=== PATIENT | female | born 1935 | race Caucasian/White ===

== ENCOUNTER 2016-10-20 11:41 | Outpatient (CLI) | payer OTHER, MEDICAID ==
[~2016-10-20 11:41] MED LIST: ACET-2165 PO; ALBU8.5H8 INH; AMLO2.5T2 PO; DICL100G16 TP; DIPH25CA83 PO; DOCU-144 PO; IPRA0.2S53 NEB; LEVO50TA8 PO; LISI5TAB PO; LOPE2CAP PO; LORA1TAB PO; TRIA80OI TP; VIS25 PO
== END 2016-10-20 18:57 | disposition home or self-care (01) ==
LOC: SMA 11:41
PROVIDERS: ATTEND Internal Medicine
DX: Z12.31 Encounter for screening mammogram for malignant neoplasm of breast (principal); I65.22 Occlusion and stenosis of left carotid artery; R05 Cough; R09.89 Other specified symptoms and signs involving the circulatory and respiratory systems; J98.4 Other disorders of lung; M47.894 Other spondylosis, thoracic region; Z86.73 Personal history of transient ischemic attack (TIA), and cerebral infarction without residual deficits
CPT/HCPCS: 71020; 93880; G0202

== ENCOUNTER 2018-01-30 21:51 | Emergency (ER) | payer OTHER, MEDICAID ==
[~2018-01-30] VITALS: Ht 170.2 cm; Wt 77.1 kg
[~2018-01-30 21:51] MED LIST changes: -ACET-2165 PO; -ALBU8.5H8 INH; -AMLO2.5T2 PO; +ASPI-1153 PO; +BUDE6HFA INH; -DICL100G16 TP; -DIPH25CA83 PO; -DOCU-144 PO; +FORM1POW5 MC; +GABA-529 PO; +HYDR12.55 PO; -IPRA0.2S53 NEB; +LISI10TA5 PO; -LISI5TAB PO; -LOPE2CAP PO; +LORA-258 PO; -LORA1TAB PO; +METO25TA3 PO; +NITR-85 PO; +PRED10TA PO; -TRIA80OI TP; -VIS25 PO
--- NOTE | 2018-01-30 21:55 | NUR ---
Placed in room 2. Placed on cardiac care unit nurse, blood pressure machine and pulse oximeter. To gown for exam. Side rails up.
--- NOTE | 2018-01-30 22:03 | NUR ---
Patient brought to ER by BLS ambulance from [facility]. Patient C/O dizziness and the feeling of "passing out" and "shakiness" Patient also states that she checked her blood pressure and it read HI. Denies N/V, denies headache, denies pain. Patient calm on gurney, unlabored breathing, no signs of acute distress.
[2018-01-30 22:04] VITALS: BP_SYST 203
--- NOTE | 2018-01-30 22:39 | NUR ---
Patient calm on gurney, denies pain. No signs of acute distress.
--- NOTE | 2018-01-30 23:31 | NUR ---
ER MD Deluna at bedside evaluating the patient.
--- NOTE | 2018-01-30 23:51 | NUR ---
# 24 gauge angiocath placed to left wrist. Use of asceptic technique. Opsite placed over site. Blood return noted. Flushed with 10 cc of normal saline. No evidence of infiltration noted. Patient tolerated well.
[2018-01-31] MEDS ORDERED: LISINOPRIL 10 MG TABLET (PRINIVIL) PO ONE
[2018-01-31] MEDS ORDERED: LORazepam 2 MG/ML VIAL (FOR ER USE) IVP ONE
--- NOTE | 2018-01-31 00:30 | NUR ---
Medicated per MD orders.
[2018-01-31] MEDS ORDERED: DILTIAZEM HCL 25 MG/5 ML VIAL IVP ONE ×2 (01:15)
--- NOTE | 2018-01-31 01:35 | NUR ---
Medicated per MD orders.
--- NOTE | 2018-01-31 01:52 | NUR ---
ER MD [place]k at bedside discussing plan of care and discharge with patient.
[2018-01-31 02:01] VITALS: BP_SYST 160
--- NOTE | 2018-01-31 02:01 | NUR ---
Patient given written and verbal discharge instructions and verbalizes understanding. ER MD Deluna discussed with patient the results and treatment provided. Patient in stable condition. ID arm band removed. IV catheter removed intact and dressing applied, no active bleeding. Patient educated on pain management and to follow up with PMD. Pain Scale 0/10. Opportunity for questions provided and answered.
== END 2018-01-31 02:01 | disposition home or self-care (01) ==
LOC: SED 21:51
DX: I10 Essential (primary) hypertension (principal); F41.9 Anxiety disorder, unspecified; I25.10 Atherosclerotic heart disease of native coronary artery without angina pectoris; J44.9 Chronic obstructive pulmonary disease, unspecified; Z86.73 Personal history of transient ischemic attack (TIA), and cerebral infarction without residual deficits; Z79.899 Other long term (current) drug therapy
CPT/HCPCS: 93005; 96374; 96375; 96376; 99284; J2060; J3490

== ENCOUNTER 2018-02-23 17:33 | Emergency (ER) | payer OTHER, MEDICAID ==
[~2018-02-23] VITALS: Ht 165.1 cm; Wt 65.8 kg
[2018-02-23 17:33] VITALS: BP_SYST 193
[2018-02-23] MEDS ORDERED: LORazepam 1 MG TABLET PO ONE (18:30)
[2018-02-23] MEDS ORDERED: ALBUTEROL SULFATE 0.083% 2.5 MG/3 ML VIAL.NEB IH ONE (18:30)
[2018-02-23 19:17] LABS: ANION GAP 8 (5-15); CALCIUM 9.4 mg/dL (8.4-11.0); CHLORIDE 105 mmol/L (98-107); CREATININE 1.08 mg/dL (0.55-1.30); GLUCOSE 95 mg/dL (70-99); POTASSIUM 4.2 mmol/L (3.5-5.1); SODIUM SERUM 138 mmol/L (136-145); UREA NITROGEN, BLOOD 31 mg/dL (8-21)
[2018-02-23 19:18] LABS: BASOPHILS # (AUTO) 0.1 K/uL (0.0-0.2); BASOPHILS % (AUTO) 1.3 % (0.0-2.0); EOSINOPHILS # (AUTO) 0.1 K/uL (0.0-0.4); EOSINOPHILS % (AUTO) 2.7 % (0.0-4.0); HEMATOCRIT 39.8 % (36-48); LYMPHOCYTES # (AUTO) 1.7 K/uL (1.0-5.5); LYMPHOCYTES % (AUTO) 31.6 % (20.5-51.5); MEAN CORPUSCULAR HEMOGLOBIN 29 pg (27-31); MEAN CORPUSCULAR HGB CONC 33 % (32-36); MEAN CORPUSCULAR VOLUME 89 fL (79.0-98.0); MONOCYTES # (AUTO) 0.6 K/uL (0.0-1.0); MONOCYTES % (AUTO) 10.5 % (1.7-9.3); NEUTROPHILS % (AUTO) 53.9 % (40.0-70.0); PLATELET COUNT (AUTO) 225 K/uL (130-430); RED BLOOD CELL COUNT(AUTO) 4.49 MIL/uL (4.2-6.2); RED CELL DISTRIBUTION WIDTH 12.9 % (9.0-15.0); WHITE BLOOD COUNT (AUTO) 5.5 K/uL (4.8-10.8)
[2018-02-23 19:22] LABS: ALANINE AMINOTRANSFERASE 18 U/L (12-78); ALBUMIN 3.7 g/dL (3.4-4.8); ASPARTATE AMINOTRANSFERASE 18 U/L (10-37); TOTAL BILIRUBIN 0.5 mg/dL (0.0-1.0)
[2018-02-23 19:26] LABS: PROTHROMBIN TIME 9.9 SECS (9.5-12.5)
[2018-02-23 20:50] VITALS: BP_SYST 193
== END 2018-02-23 20:50 | disposition home or self-care (01) ==
LOC: SED 17:33
DX: F41.9 Anxiety disorder, unspecified (principal); J44.9 Chronic obstructive pulmonary disease, unspecified; I10 Essential (primary) hypertension; I25.10 Atherosclerotic heart disease of native coronary artery without angina pectoris; Z86.73 Personal history of transient ischemic attack (TIA), and cerebral infarction without residual deficits; Z90.49 Acquired absence of other specified parts of digestive tract; Z90.710 Acquired absence of both cervix and uterus; Z79.899 Other long term (current) drug therapy
CPT/HCPCS: 36415; 71045; 80053; 83880; 84484; 85025; 85610; 85730; 93005; 94640; 99285; J7613

== ENCOUNTER 2018-05-08 14:41 | Inpatient (IN) | payer OTHER, MEDICAID ==
[~2018-05-08] VITALS: Ht 165.1 cm; Wt 57.6 kg
[2018-05-08] MEDS ORDERED: NACL 0.9% 1,000 ML IV ONE (14:46)
[2018-05-08 14:54] VITALS: BP_SYST 114
[2018-05-08] MEDS ORDERED: MORPHINE 2 MG/ML INJ. SYRINGE IVP ONE (15:00)
[2018-05-08] MEDS ORDERED: ONDANSETRON HCL 4 MG/2 ML VIAL IVP ONE (15:00)
[2018-05-08] MEDS ORDERED: CLOPIDOGREL BISULFATE 75 MG TABLET PO ONE (15:00)
[2018-05-08] MEDS ORDERED: ASPIRIN 81 MG TAB.CHEW PO ONE (15:00)
[2018-05-08 15:15] LABS: BASOPHILS # (AUTO) 0.1 K/uL (0.0-0.2); BASOPHILS % (AUTO) 0.6 % (0.0-2.0); EOSINOPHILS # (AUTO) 0.2 K/uL (0.0-0.4); EOSINOPHILS % (AUTO) 2.8 % (0.0-4.0); HEMATOCRIT 38.9 % (36-48); HEMOGLOBIN 12.9 g/dL (12.0-16.0); LYMPHOCYTES # (AUTO) 3.4 K/uL (1.0-5.5); LYMPHOCYTES % (AUTO) 39.1 % (20.5-51.5); MEAN CORPUSCULAR HEMOGLOBIN 29 pg (27-31); MEAN CORPUSCULAR HGB CONC 33 % (32-36); MEAN CORPUSCULAR VOLUME 88 fL (79.0-98.0); MONOCYTES # (AUTO) 0.6 K/uL (0.0-1.0); MONOCYTES % (AUTO) 7.2 % (1.7-9.3); NEUTROPHILS # (AUTO) 4.3 K/uL (1.8-7.7); NEUTROPHILS % (AUTO) 50.3 % (40.0-70.0); PLATELET COUNT (AUTO) 386 K/uL (130-430); RED BLOOD CELL COUNT(AUTO) 4.44 MIL/uL (4.2-6.2); RED CELL DISTRIBUTION WIDTH 13.1 % (9.0-15.0); WHITE BLOOD COUNT (AUTO) 8.6 K/uL (4.8-10.8)
[2018-05-08 15:26] LABS: ANION GAP 11 (5-15); CHLORIDE 101 mmol/L (98-107); CREATININE 1.75 mg/dL (0.55-1.30); GLUCOSE 132 mg/dL (70-99); SODIUM SERUM 138 mmol/L (136-145); UREA NITROGEN, BLOOD 55 mg/dL (8-21)
[2018-05-08 15:33] LABS: ALANINE AMINOTRANSFERASE 25 U/L (12-78); ALBUMIN 3.9 g/dL (3.4-4.8); AMYLASE 87 U/L (0-100); ASPARTATE AMINOTRANSFERASE 20 U/L (10-37); LIPASE 342 U/L (73-393); PROTHROMBIN TIME 9.9 SECS (9.5-12.5); TOTAL BILIRUBIN 0.6 mg/dL (0.0-1.0)
[2018-05-08 17:39] LABS: BILIRUBIN,URINE NEGATIVE (NEGATIVE); BLOOD, URINE NEGATIVE (NEGATIVE); CLARITY/URINE CLEAR (CLEAR); COLOR,URINE YELLOW (YELLOW); GLUCOSE,URINE NEGATIVE (NEGATIVE); KETONES,URINE NEGATIVE (NEGATIVE); LEUKOCYTE ESTERASE ,URINE 1+ (NEGATIVE); NITRITE, URINE NEGATIVE (NEGATIVE); PROTEIN URINE NEGATIVE (NEGATIVE); UROBILINOGEN,URINE 0.2 (0.2-1.0)
[2018-05-08 17:44] LABS: BACTERIA,URINE FEW /HPF (None Seen); RBC,URINE 0-3 /HPF (0-3)
[2018-05-08 18:13] VITALS: BP_SYST 155
[2018-05-08 19:45] VITALS: BP_SYST 148
[2018-05-08] MEDS ORDERED: ONDANSETRON HCL 4 MG/2 ML VIAL IVP PRN (23:15)
[2018-05-08] MEDS ORDERED: ALBUTEROL SULFATE 0.083% 2.5 MG/3 ML VIAL.NEB INH PRN (23:15)
[2018-05-08] MEDS ORDERED: HYDROcodone/ACETAMIN 5-325 MG TAB (NORCO/ VICODIN) PO PRN (23:15)
[2018-05-08] MEDS: cefTRIAXone 1 GM IVPB PREMIX 50 ML IV SCH (23:30)
[2018-05-08] MEDS ORDERED: POTASSIUM CHLORIDE 10 MEQ TAB.PRT.SR PO ONE (23:30)
[2018-05-09] VITALS (11 sets, daily range): BP systolic 119–165
[2018-05-09] MEDS ORDERED: cefTRIAXone 1 GM IVPB PREMIX 50 ML IV ONE (00:27)
[2018-05-09] MEDS ORDERED: LORazepam 1 MG TABLET PO PRN (04:30)
[2018-05-09] MEDS: LEVOTHYROXINE SODIUM 0.05 MG TABLET PO SCH (06:45)
[2018-05-09 07:10] LABS: BASOPHILS % (AUTO) 0.2 % (0.0-2.0); EOSINOPHILS # (AUTO) 0.3 K/uL (0.0-0.4); EOSINOPHILS % (AUTO) 3.8 % (0.0-4.0); HEMATOCRIT 36.7 % (36-48); LYMPHOCYTES # (AUTO) 2.4 K/uL (1.0-5.5); LYMPHOCYTES % (AUTO) 28.2 % (20.5-51.5); MEAN CORPUSCULAR HEMOGLOBIN 29 pg (27-31); MEAN CORPUSCULAR HGB CONC 33 % (32-36); MEAN CORPUSCULAR VOLUME 89 fL (79.0-98.0); MONOCYTES # (AUTO) 0.8 K/uL (0.0-1.0); NEUTROPHILS # (AUTO) 5.1 K/uL (1.8-7.7); NEUTROPHILS % (AUTO) 58.8 % (40.0-70.0); PLATELET COUNT (AUTO) 311 K/uL (130-430); RED BLOOD CELL COUNT(AUTO) 4.11 MIL/uL (4.2-6.2); RED CELL DISTRIBUTION WIDTH 13.2 % (9.0-15.0); WHITE BLOOD COUNT (AUTO) 8.6 K/uL (4.8-10.8)
[2018-05-09 07:22] LABS: ANION GAP 4 (5-15); CALCIUM 9.3 mg/dL (8.4-11.0); CHLORIDE 105 mmol/L (98-107); CREATININE 1.55 mg/dL (0.55-1.30); GLUCOSE 107 mg/dL (70-99); POTASSIUM 4.1 mmol/L (3.5-5.1); SODIUM SERUM 140 mmol/L (136-145); UREA NITROGEN, BLOOD 48 mg/dL (8-21)
[2018-05-09 07:34] LABS: ALANINE AMINOTRANSFERASE 23 U/L (12-78); ALBUMIN 3.4 g/dL (3.4-4.8); ASPARTATE AMINOTRANSFERASE 20 U/L (10-37); TOTAL BILIRUBIN 0.6 mg/dL (0.0-1.0)
[2018-05-09] MEDS ORDERED: BUDESONIDE/FORMOTEROL 160-4.5 mCg, 6 GM INHALER INH SCH (09:00)
[2018-05-09] MEDS: PREDNISONE 10 MG TABLET PO SCH (10:11)
[2018-05-09] MEDS: LISINOPRIL 10 MG TABLET (PRINIVIL) PO SCH (10:11)
[2018-05-09] MEDS: LORazepam 1 MG TABLET PO SCH ×2 (10:11→21:51)
[2018-05-09] MEDS: ASPIRIN 81 MG TABLET(ECOTRIN) PO SCH (10:12)
[2018-05-09] MEDS: ENOXAPARIN SODIUM 30 MG/0.3 ML SYRINGE SUBCUT SCH (10:13)
[2018-05-09] MEDS: FLUTICASONE/VILANTEROL 1 EACH BLST.W.DEV INH SCH (10:14)
[2018-05-09] MEDS: 0.45% NACL 1,000 ML IV SCH ×2 (10:46→22:36)
[2018-05-09] MEDS ORDERED: CLOPIDOGREL BISULFATE 75 MG TABLET PO ONE (12:15)
[2018-05-09] MEDS ORDERED: GABAPENTIN 100 MG CAPSULE PO SCH (21:00)
[2018-05-09] MEDS ORDERED: METOPROLOL SUCCINATE 25 MG TAB.SR.24H (TOPROL XL) PO SCH (21:00)
[2018-05-09] MEDS: cefTRIAXone 1 GM IVPB PREMIX 50 ML IV SCH (22:36)
[2018-05-10 00:02] VITALS: BP_SYST 130
[2018-05-10] MEDS: LEVOTHYROXINE SODIUM 0.05 MG TABLET PO SCH (06:31)
[2018-05-10 08:00] VITALS: BP_SYST 152
[2018-05-10] MEDS: ASPIRIN 81 MG TABLET(ECOTRIN) PO SCH (08:53)
[2018-05-10] MEDS: LISINOPRIL 10 MG TABLET (PRINIVIL) PO SCH (08:54)
[2018-05-10] MEDS: PREDNISONE 10 MG TABLET PO SCH (08:54)
[2018-05-10] MEDS: LORazepam 1 MG TABLET PO SCH (08:54)
[2018-05-10] MEDS: ENOXAPARIN SODIUM 30 MG/0.3 ML SYRINGE SUBCUT SCH (08:57)
[2018-05-10] MEDS: FLUTICASONE/VILANTEROL 1 EACH BLST.W.DEV INH SCH (08:58)
[2018-05-10] MEDS ORDERED: ATORVASTATIN 20 MG TABLET PO SCH (09:00)
[2018-05-10] MEDS ORDERED: CLOPIDOGREL BISULFATE 75 MG TABLET PO SCH (09:00)
[2018-05-10 11:28] VITALS: BP_SYST 152
[2018-05-10] MEDS ORDERED: plavix (11:36)
[2018-05-10] MEDS ORDERED: LIP40 PO (11:37)
== END 2018-05-10 12:01 | disposition home or self-care (01) | DRG 689 ==
LOC: SED 14:41 → STU 17:42
PROVIDERS: ADMIT Internal Medicine; ATTEND Internal Medicine
DX: N39.0 Urinary tract infection, site not specified (principal); N17.0 Acute kidney failure with tubular necrosis; I42.9 Cardiomyopathy, unspecified; R55 Syncope and collapse; N28.9 Disorder of kidney and ureter, unspecified; E87.6 Hypokalemia; I10 Essential (primary) hypertension; E78.5 Hyperlipidemia, unspecified; R79.89 Other specified abnormal findings of blood chemistry; E03.9 Hypothyroidism, unspecified; F41.9 Anxiety disorder, unspecified; R00.1 Bradycardia, unspecified; I25.119 Atherosclerotic heart disease of native coronary artery with unspecified angina pectoris; J44.9 Chronic obstructive pulmonary disease, unspecified; Z86.73 Personal history of transient ischemic attack (TIA), and cerebral infarction without residual deficits; Z90.710 Acquired absence of both cervix and uterus; Z95.5 Presence of coronary angioplasty implant and graft; Z82.49 Family history of ischemic heart disease and other diseases of the circulatory system; Z79.899 Other long term (current) drug therapy; Z79.82 Long term (current) use of aspirin; Z90.49 Acquired absence of other specified parts of digestive tract
CPT/HCPCS: 36415; 71045; 78579; 78580-TC; 80053; 81000-TC; 82150-TC; 82550-TC; 83690-TC; 83880; 84484; 85025; 85379; 85610-TC; 85730-TC; 87081; 87086; 93005; 93306; 93880; 93970; 96374; 99285; A9539; A9540; G0378; J0696; J1650; J2405; J7512

== ENCOUNTER 2018-08-05 12:21 | Outpatient (CLI) | payer OTHER, MEDICAID ==
[~2018-08-05 12:21] MED LIST changes: +LIP40 PO; +plavix
== END 2018-08-05 20:51 | disposition home or self-care (01) ==
LOC: SRD 12:21
PROVIDERS: ATTEND Internal Medicine
DX: M79.671 Pain in right foot (principal); M79.672 Pain in left foot

== ENCOUNTER 2019-01-05 13:11 | Outpatient (CLI) | payer OTHER, MEDICAID ==
[~2019-01-05 13:11] MED LIST changes: +ATOR10TA68 PO; +AZIT250T PO; -BUDE6HFA INH; -FORM1POW5 MC; +FURO-149 PO; -GABA-529 PO; -LEVO50TA8 PO; -LIP40 PO; -LISI10TA5 PO; +LISI40TA4 PO; -NITR-85 PO; -PRED10TA PO; +SYN50 PO; -plavix
== END 2019-01-05 21:08 | disposition home or self-care (01) ==
LOC: SRD 13:11
PROVIDERS: ATTEND Internal Medicine
DX: M47.814 Spondylosis without myelopathy or radiculopathy, thoracic region (principal); M47.816 Spondylosis without myelopathy or radiculopathy, lumbar region; M81.8 Other osteoporosis without current pathological fracture; M48.04 Spinal stenosis, thoracic region; M48.061 Spinal stenosis, lumbar region without neurogenic claudication; G95.19 Other vascular myelopathies; M95.8 Other specified acquired deformities of musculoskeletal system
CPT/HCPCS: 71120-TC; 72072-TC; 72110; 73000-TC

== ENCOUNTER 2019-08-17 15:00 | Emergency (ER) | payer OTHER, MEDICAID ==
[~2019-08-17] VITALS: Ht 162.6 cm; Wt 49.9 kg
[2019-08-17 15:11] VITALS: BP_SYST 161
[2019-08-17] MEDS ORDERED: IPRATROPIUM/ALBUTEROL SULFATE 3 ML AMPUL.NEB (DUONEB) INH ONE (15:15)
[2019-08-17] MEDS ORDERED: methylPREDNISolone SOD SUCC/PF 62.5 MG/ML VIAL IM ONE (15:15)
[2019-08-17 15:55] LABS: BASOPHILS % (AUTO) 0.6 % (0.0-2.0); EOSINOPHILS # (AUTO) 0.2 K/uL (0.0-0.4); HEMATOCRIT 37.1 % (36-48); HEMOGLOBIN 12.5 g/dL (12.0-16.0); LYMPHOCYTES # (AUTO) 2.3 K/uL (1.0-5.5); LYMPHOCYTES % (AUTO) 36.7 % (20.5-51.5); MEAN CORPUSCULAR HEMOGLOBIN 30 pg (27-31); MEAN CORPUSCULAR HGB CONC 34 % (32-36); MEAN CORPUSCULAR VOLUME 89 fL (79.0-98.0); MONOCYTES # (AUTO) 0.6 K/uL (0.0-1.0); MONOCYTES % (AUTO) 9.1 % (1.7-9.3); NEUTROPHILS # (AUTO) 3.1 K/uL (1.8-7.7); NEUTROPHILS % (AUTO) 50.6 % (40.0-70.0); PLATELET COUNT (AUTO) 187 K/uL (130-430); RED BLOOD CELL COUNT(AUTO) 4.19 MIL/uL (4.2-6.2); RED CELL DISTRIBUTION WIDTH 13.3 % (9.0-15.0); WHITE BLOOD COUNT (AUTO) 6.2 K/uL (4.8-10.8)
[2019-08-17] MEDS ORDERED: LEVOFLOXACIN 500 MG TABLET PO ONE (16:30)
[2019-08-17 16:32] LABS: ANION GAP 13 (5-15); CALCIUM 9.2 mg/dL (8.4-11.0); CHLORIDE 105 mmol/L (98-107); CREATININE 1.14 mg/dL (0.55-1.30); GLUCOSE 139 mg/dL (70-99); SODIUM SERUM 143 mmol/L (136-145); UREA NITROGEN, BLOOD 26 mg/dL (8-21)
[2019-08-17 16:36] LABS: POTASSIUM 2.9 mmol/L (3.5-5.1)
[2019-08-17 16:39] LABS: TOTAL BILIRUBIN 0.5 mg/dL (0.0-1.0)
[2019-08-17 16:40] LABS: ALANINE AMINOTRANSFERASE 25 U/L (12-78); ALBUMIN 3.7 g/dL (3.4-4.8); ASPARTATE AMINOTRANSFERASE 25 U/L (10-37)
[2019-08-17] MEDS ORDERED: NACL 0.9% 1,000 ML IV ONE (16:45)
[2019-08-17] MEDS ORDERED: POTASSIUM CHLORIDE 20 MEQ TAB.PRT.SR PO ONE (16:45)
[2019-08-17] MEDS ORDERED: NS 500 ML IV ONE (16:45)
[2019-08-17 19:27] VITALS: BP_SYST 166
== END 2019-08-17 19:27 | disposition home or self-care (01) ==
LOC: SED 15:00
DX: J44.1 Chronic obstructive pulmonary disease with (acute) exacerbation (principal); E87.6 Hypokalemia; I25.10 Atherosclerotic heart disease of native coronary artery without angina pectoris; I10 Essential (primary) hypertension; Z79.82 Long term (current) use of aspirin; Z88.8 Allergy status to other drugs, medicaments and biological substances
CPT/HCPCS: 36415; 71045; 80053; 81002; 83605; 83880; 84484; 85025; 86710; 87040; 87086; 93005; 94640; 96372; 99285; J2930; J7030

== ENCOUNTER 2020-03-31 16:47 | Emergency (ER) | payer OTHER, MEDICAID ==
[~2020-03-31] VITALS: Ht 170.2 cm; Wt 63.5 kg
[2020-03-31 16:47] VITALS: BP_SYST 141
[~2020-03-31 16:47] MED LIST changes: -ASPI-1153 PO; +ASPI-1393 PO
--- NOTE | 2020-03-31 16:47 | NUR ---
Placed inbed 6, Triaged at bedside. Dr. Mariscal at bedside
--- NOTE | 2020-03-31 16:54 | NUR ---
ER at bedside examining patient.
[2020-03-31] MEDS ORDERED: NACL 0.9% 1,000 ML IV ONE (17:00)
--- NOTE | 2020-03-31 17:06 | NUR ---
senior director of [employer] at bedside collecting blood specimen as ordered by Dr. Mariscal. Patient tolerated the procedure well.
--- NOTE | 2020-03-31 17:12 | NUR ---
X-ray done at bedside as ordered by Dr. JIMENEZ. Patient tolerated the procedure well.
--- NOTE | 2020-03-31 17:20 | NUR ---
ECG done at bedside as ordered by Dr. Mariscal. Patient tolerated the procedure well. ER Physician given copy of EKG for review.
[2020-03-31 17:24] LABS: BASOPHILS # (AUTO) 0.1 K/uL (0.0-0.2); BASOPHILS % (AUTO) 1.1 % (0.0-2.0); EOSINOPHILS # (AUTO) 0.1 K/uL (0.0-0.4); EOSINOPHILS % (AUTO) 2.9 % (0.0-4.0); HEMATOCRIT 37.8 % (36-48); HEMOGLOBIN 12.5 g/dL (12.0-16.0); LYMPHOCYTES # (AUTO) 1.8 K/uL (1.0-5.5); LYMPHOCYTES % (AUTO) 35.5 % (20.5-51.5); MEAN CORPUSCULAR HEMOGLOBIN 29 pg (27-31); MEAN CORPUSCULAR HGB CONC 33 % (32-36); MEAN CORPUSCULAR VOLUME 88 fL (79.0-98.0); MONOCYTES # (AUTO) 0.5 K/uL (0.0-1.0); MONOCYTES % (AUTO) 9.9 % (1.7-9.3); NEUTROPHILS # (AUTO) 2.6 K/uL (1.8-7.7); NEUTROPHILS % (AUTO) 50.6 % (40.0-70.0); PLATELET COUNT (AUTO) 189 K/uL (130-430); RED BLOOD CELL COUNT(AUTO) 4.28 MIL/uL (4.2-6.2); RED CELL DISTRIBUTION WIDTH 14.1 % (9.0-15.0); WHITE BLOOD COUNT (AUTO) 5.1 K/uL (4.8-10.8)
--- NOTE | 2020-03-31 17:27 | NUR ---
Patient used the BSC with a steady gait. Urine specimen collected as ordered by Dr. Mariscal.
--- NOTE | 2020-03-31 17:32 | NUR ---
Patient is taken to CT via gurney, in stable condition.
[2020-03-31 17:36] LABS: ANION GAP 7 (5-15); CHLORIDE 104 mmol/L (98-107); CREATININE 0.97 mg/dL (0.55-1.30); GLUCOSE 113 mg/dL (70-99); POTASSIUM 3.5 mmol/L (3.5-5.1); SODIUM SERUM 140 mmol/L (136-145); UREA NITROGEN, BLOOD 27 mg/dL (8-21)
[2020-03-31 17:42] LABS: ALANINE AMINOTRANSFERASE 19 U/L (12-78); ALBUMIN 3.8 g/dL (3.4-4.8); ASPARTATE AMINOTRANSFERASE 28 U/L (10-37); TOTAL BILIRUBIN 0.4 mg/dL (0.0-1.0)
[2020-03-31 17:43] LABS: ALCOHOL, BLOOD < 3 mg/dL (<10)
--- NOTE | 2020-03-31 17:43 | NUR ---
Patient is back from CT in stable condition.
[2020-03-31] MEDS ORDERED: MECLIZINE HCL 25 MG TABLET (ANITVERT) PO ONE (17:45)
[2020-03-31 17:48] LABS: BILIRUBIN,URINE NEGATIVE (NEGATIVE); BLOOD, URINE NEGATIVE (NEGATIVE); CLARITY/URINE CLEAR (CLEAR); GLUCOSE,URINE NEGATIVE (NEGATIVE); KETONES,URINE NEGATIVE (NEGATIVE); LEUKOCYTE ESTERASE ,URINE NEGATIVE (NEGATIVE); NITRITE, URINE NEGATIVE (NEGATIVE); PH,URINE 7.5 (5.0-8.0); PROTEIN URINE NEGATIVE (NEGATIVE); UROBILINOGEN,URINE 0.2 (0.2-1.0)
[2020-03-31 17:50] LABS: COLOR,URINE STRAW (YELLOW)
--- NOTE | 2020-03-31 18:00 | NUR ---
# 22 gauge angiocath placed to RFA. Use of asceptic technique. Opsite placed over site. Blood return noted. Flushed with 10 cc of normal saline. No evidence of infiltration noted. Patient tolerated well.
[2020-03-31 18:01] LABS: BARBITURATE, URINE NEGATIVE (NEG <=200); BENZODIAZEPINE, URINE NEGATIVE (NEG <=150); CANNABINOID, URINE NEGATIVE (NEG <=50); COCAINE, URINE NEGATIVE (NEG <=150); METHAMPHETAMINES SCREEN,URINE NEGATIVE (NEG <=500); OPIATE, URINE NEGATIVE (NEG <=100); PHENCYCLIDINE SCREEN,URINE NEGATIVE (NEG <=25); UR TRICYCLIC ANTIDEPRESSANTS NEGATIVE (NEG <=300); URINE AMPHETAMINE NEGATIVE (NEG <=500); URINE METHADONE NEGATIVE (NEG <=200); URINE OXYCODONE SCREEN NEGATIVE (NEG <=100); URINE PROPOXYPHENE SCREEN NEGATIVE (NEG <=300)
--- NOTE | 2020-03-31 18:48 | NUR ---
Patient wants the IV stopped and off. notified. Okay to discontinue per Dr. Mariscal.
[2020-03-31 18:55] VITALS: BP_SYST 141
--- NOTE | 2020-03-31 18:56 | NUR ---
Patient given written and verbal discharge instructions and verbalizes understanding. ER MD discussed with patient the results and treatment provided. Patient in stable condition. ID arm band removed. No Rx given. Patient educated on pain management and to follow up with PMD. Pain Scale 0/10. Opportunity for questions provided and answered. Medication side effect fact sheet provided.
== END 2020-03-31 18:56 | disposition home or self-care (01) ==
LOC: SED 16:47
DX: R42 Dizziness and giddiness (principal); E86.0 Dehydration; J44.9 Chronic obstructive pulmonary disease, unspecified; I10 Essential (primary) hypertension; Z79.82 Long term (current) use of aspirin; Z79.899 Other long term (current) drug therapy
CPT/HCPCS: 36415; 70450; 71045; 80053; 80307; 81003; 84484; 85025; 85610; 85730; 93005; 96360; 99285; G0481; G0482; J7030; J8597

== ENCOUNTER 2020-06-01 22:02 | Emergency (ER) | payer OTHER, MEDICAID ==
[~2020-06-01] VITALS: Ht 170.2 cm; Wt 63.5 kg
[2020-06-01 22:07] VITALS: BP_SYST 239
--- NOTE | 2020-06-01 22:10 | NUR ---
Patient to [facility] for evaluation.
--- NOTE | 2020-06-01 22:12 | NUR ---
PT BIB [facility] FOR COMPLAINT OF HYPERTENSION SYSTOLIC GREATER THAN 200. PATIENT IS AOX4 COMPLAINS MILD HEADACHE. DENIES ANY NAUSEA, VOMITING, OR CHANGE OF VISION. PATIENT HX OF HTN AND REPORTS TAKING AMLODIPINE TODAY. PAIN 2/10. NO OTHER COMPLAINTS.
--- NOTE | 2020-06-01 22:59 | NUR ---
ER Dr. VALLES at bedside examining patient.
--- NOTE | 2020-06-01 23:00 | NUR ---
PHLEB AT BEDSIDE FOR DRAW
[2020-06-01 23:38] LABS: MEAN CORPUSCULAR HEMOGLOBIN 30 pg (27-31); RED BLOOD CELL COUNT(AUTO) 4.28 MIL/uL (4.2-6.2)
[2020-06-01] MEDS ORDERED: cloNIDine HCL 0.1 MG TABLET ONE (23:42)
[2020-06-01 23:43] LABS: BASOPHILS % (AUTO) 0.4 % (0.0-2.0); EOSINOPHILS # (AUTO) 0.2 K/uL (0.0-0.4); EOSINOPHILS % (AUTO) 3.1 % (0.0-4.0); HEMATOCRIT 36.9 % (36-48); HEMOGLOBIN 12.7 g/dL (12.0-16.0); LYMPHOCYTES # (AUTO) 2.2 K/uL (1.0-5.5); MEAN CORPUSCULAR HGB CONC 34 % (32-36); MEAN CORPUSCULAR VOLUME 86 fL (79.0-98.0); MONOCYTES # (AUTO) 0.5 K/uL (0.0-1.0); MONOCYTES % (AUTO) 9.2 % (1.7-9.3); NEUTROPHILS # (AUTO) 2.7 K/uL (1.8-7.7); NEUTROPHILS % (AUTO) 48.3 % (40.0-70.0); PLATELET COUNT (AUTO) 168 K/uL (130-430); RED CELL DISTRIBUTION WIDTH 13.6 % (9.0-15.0); WHITE BLOOD COUNT (AUTO) 5.7 K/uL (4.8-10.8)
[2020-06-01] MEDS ORDERED: cloNIDine HCL 0.1 MG TABLET PO ONE (23:45)
--- NOTE | 2020-06-01 23:47 | NUR ---
Urine specimen collected and SENT TO LAB
[2020-06-01 23:50] LABS: ANION GAP 11 (5-15); CALCIUM 8.7 mg/dL (8.4-11.0); CHLORIDE 107 mmol/L (98-107); CREATININE 0.89 mg/dL (0.55-1.30); GLUCOSE 89 mg/dL (70-99); POTASSIUM 3.1 mmol/L (3.5-5.1); SODIUM SERUM 144 mmol/L (136-145); UREA NITROGEN, BLOOD 21 mg/dL (8-21)
--- NOTE | 2020-06-01 23:53 | NUR ---
BP 193/98 PRIOR TO ADMINISTERING CLONIDINE 0.1 MG PO. PATIENT TOLERATED WELL. WILL CONTINUE TO MONITOR.
[2020-06-01 23:57] LABS: ALANINE AMINOTRANSFERASE 23 U/L (12-78); ASPARTATE AMINOTRANSFERASE 24 U/L (10-37); TOTAL BILIRUBIN 0.6 mg/dL (0.0-1.0)
[2020-06-02 00:33] LABS: BILIRUBIN,URINE NEGATIVE (NEGATIVE); BLOOD, URINE NEGATIVE (NEGATIVE); CLARITY/URINE CLEAR (CLEAR); COLOR,URINE YELLOW (YELLOW); GLUCOSE,URINE NEGATIVE (NEGATIVE); KETONES,URINE NEGATIVE (NEGATIVE); LEUKOCYTE ESTERASE ,URINE 1+ (NEGATIVE); NITRITE, URINE NEGATIVE (NEGATIVE); PH,URINE 6.5 (5.0-8.0); PROTEIN URINE NEGATIVE (NEGATIVE); UROBILINOGEN,URINE 0.2 (0.2-1.0)
[2020-06-02 00:38] LABS: RBC,URINE 0-3 /HPF (0-3)
[2020-06-02 00:39] LABS: BACTERIA,URINE FEW /HPF (None Seen)
[2020-06-02] MEDS ORDERED: POTASSIUM CHLORIDE 20 MEQ TAB.PRT.SR ONE (00:45)
[2020-06-02] MEDS ORDERED: POTASSIUM CHLORIDE 20 MEQ TAB.PRT.SR PO ONE (00:45)
[2020-06-02 01:42] VITALS: BP_SYST 140
--- NOTE | 2020-06-02 01:42 | NUR ---
Patient given written and verbal discharge instructions and verbalizes understanding. ER MD discussed with patient the results and treatment provided. Patient in stable condition. ID arm band removed. IV catheter removed intact and dressing applied, no active bleeding. Rx of MACROBID given. Patient educated on pain management and to follow up with PMD. Pain Scale 0/10 Opportunity for questions provided and answered. Medication side effect fact sheet provided.
== END 2020-06-02 01:42 | disposition home or self-care (01) ==
LOC: SED 22:02
DX: I10 Essential (primary) hypertension (principal); N39.0 Urinary tract infection, site not specified; J44.9 Chronic obstructive pulmonary disease, unspecified
CPT/HCPCS: 36415; 80053; 81000-TC; 85025; 87086; 93005; 99284

== ENCOUNTER 2021-02-16 12:25 | Emergency (ER) | payer OTHER, MEDICAID, SELFPAY ==
[~2021-02-16] VITALS: Ht 165.1 cm; Wt 58.1 kg
[~2021-02-16 12:25] MED LIST changes: -AZIT250T PO; +LISI40TA13 PO; -LISI40TA4 PO; +ZIT250 PO
[2021-02-16 12:29] VITALS: BP_SYST 134
[2021-02-16 13:26] LABS: BASOPHILS % (AUTO) 0.7 % (0.0-2.0); EOSINOPHILS # (AUTO) 0.1 K/uL (0.0-0.4); EOSINOPHILS % (AUTO) 2.3 % (0.0-4.0); HEMATOCRIT 35.3 % (36-48); LYMPHOCYTES # (AUTO) 1.7 K/uL (1.0-5.5); LYMPHOCYTES % (AUTO) 32.6 % (20.5-51.5); MEAN CORPUSCULAR HEMOGLOBIN 30 pg (27-31); MEAN CORPUSCULAR HGB CONC 34 % (32-36); MEAN CORPUSCULAR VOLUME 89 fL (79.0-98.0); MONOCYTES # (AUTO) 0.5 K/uL (0.0-1.0); MONOCYTES % (AUTO) 9.6 % (1.7-9.3); NEUTROPHILS # (AUTO) 2.8 K/uL (1.8-7.7); NEUTROPHILS % (AUTO) 54.8 % (40.0-70.0); PLATELET COUNT (AUTO) 193 K/uL (130-430); RED BLOOD CELL COUNT(AUTO) 3.96 MIL/uL (4.2-6.2); RED CELL DISTRIBUTION WIDTH 13.8 % (9.0-15.0); WHITE BLOOD COUNT (AUTO) 5.1 K/uL (4.8-10.8)
[2021-02-16 13:39] LABS: ANION GAP 10 (5-15); CALCIUM 9.1 mg/dL (8.4-11.0); CHLORIDE 105 mmol/L (98-107); GLUCOSE 137 mg/dL (70-99); POTASSIUM 3.2 mmol/L (3.5-5.1); SODIUM SERUM 142 mmol/L (136-145); UREA NITROGEN, BLOOD 32 mg/dL (8-21)
[2021-02-16 13:45] LABS: INR 0.9 (0.8-1.2); PROTHROMBIN TIME 10.1 SECS (9.5-12.5)
[2021-02-16 13:52] LABS: ALANINE AMINOTRANSFERASE 22 U/L (12-78); ALBUMIN 3.6 g/dL (3.4-4.8); ASPARTATE AMINOTRANSFERASE 23 U/L (10-37); TOTAL BILIRUBIN 0.6 mg/dL (0.0-1.0)
[2021-02-16] MEDS ORDERED: POTASSIUM CHLORIDE 20 MEQ TAB.PRT.SR PO ONE (14:45)
[2021-02-16 16:11] VITALS: BP_SYST 134
== END 2021-02-16 16:10 | disposition home or self-care (01) ==
LOC: SED 12:25
DX: J44.9 Chronic obstructive pulmonary disease, unspecified (principal); I10 Essential (primary) hypertension; Z79.899 Other long term (current) drug therapy; Z79.82 Long term (current) use of aspirin
CPT/HCPCS: 36415; 71045; 80053; 83880; 84484; 85025; 85610-TC; 85730-TC; 93005; 99285

== ENCOUNTER 2021-06-25 06:00 | Day surgery (SDC) | payer OTHER, MEDICAID, SELFPAY ==
[~2021-06-25] VITALS: Ht 165.1 cm; Wt 57.6 kg
[2021-06-25 07:50] LABS: BASOPHILS # (AUTO) 0.1 K/uL (0.0-0.2); BASOPHILS % (AUTO) 1.1 % (0.0-2.0); EOSINOPHILS # (AUTO) 0.2 K/uL (0.0-0.4); EOSINOPHILS % (AUTO) 2.7 % (0.0-4.0); HEMATOCRIT 35.8 % (36-48); HEMOGLOBIN 12.1 g/dL (12.0-16.0); LYMPHOCYTES # (AUTO) 1.7 K/uL (1.0-5.5); LYMPHOCYTES % (AUTO) 26.9 % (20.5-51.5); MEAN CORPUSCULAR HEMOGLOBIN 29 pg (27-31); MEAN CORPUSCULAR HGB CONC 34 % (32-36); MEAN CORPUSCULAR VOLUME 87 fL (79.0-98.0); MONOCYTES # (AUTO) 0.6 K/uL (0.0-1.0); MONOCYTES % (AUTO) 9.2 % (1.7-9.3); NEUTROPHILS # (AUTO) 3.7 K/uL (1.8-7.7); NEUTROPHILS % (AUTO) 60.1 % (40.0-70.0); PLATELET COUNT (AUTO) 210 K/uL (130-430); RED BLOOD CELL COUNT(AUTO) 4.13 MIL/uL (4.2-6.2); RED CELL DISTRIBUTION WIDTH 14.4 % (9.0-15.0); WHITE BLOOD COUNT (AUTO) 6.2 K/uL (4.8-10.8)
[2021-06-25 08:23] LABS: ANION GAP 14 (5-15); CALCIUM 9.1 mg/dL (8.4-11.0); CHLORIDE 109 mmol/L (98-107); CREATININE 1.17 mg/dL (0.55-1.30); GLUCOSE 103 mg/dL (70-99); POTASSIUM 3.5 mmol/L (3.5-5.1); SODIUM SERUM 144 mmol/L (136-145); UREA NITROGEN, BLOOD 18 mg/dL (8-21)
[2021-06-25] MEDS ORDERED: hydrALAZINE HCL 20 MG/ML VIAL IVP PRN (10:15)
[2021-06-25] MEDS ORDERED: HYDROmorphone 1 MG/ML INJ. CARTRIDGE IVP PRN ×2 (10:15)
[2021-06-25] MEDS ORDERED: LR 1,000 ML IV SCH (10:15)
[2021-06-25] MEDS ORDERED: METOCLOPRAMIDE HCL 10 MG/2 ML VIAL IVP PRN (10:15)
[2021-06-25] MEDS ORDERED: MEPERIDINE HCL/PF 25 MG/ML DISP.SYRIN IVP PRN (10:15)
[2021-06-25 15:10] VITALS: BP_SYST 143
== END 2021-06-25 14:50 | disposition home or self-care (01) ==
LOC: SMU 06:00 → SDS 06:00
PROVIDERS: ATTEND Surgery
DX: C44.622 Squamous cell carcinoma of skin of right upper limb, including shoulder (principal); R22.31 Localized swelling, mass and lump, right upper limb; I25.10 Atherosclerotic heart disease of native coronary artery without angina pectoris; I10 Essential (primary) hypertension; J44.9 Chronic obstructive pulmonary disease, unspecified; Z95.5 Presence of coronary angioplasty implant and graft; Z20.822 Contact with and (suspected) exposure to COVID-19
CPT/HCPCS: 14020; 36415; 71046; 80048; 85025; 87426; 88304; U0003

== ENCOUNTER 2021-07-03 10:19 | Emergency (ER) | payer OTHER, MEDICAID, SELFPAY ==
[~2021-07-03] VITALS: Ht 167.6 cm; Wt 57.6 kg
[2021-07-03 10:30] VITALS: BP_SYST 140
[2021-07-03] MEDS ORDERED: IBUP-2018 PO (11:15)
[2021-07-03 12:06] VITALS: BP_SYST 146
== END 2021-07-03 12:06 | disposition home or self-care (01) ==
LOC: SED 10:19
DX: S93.402A Sprain of unspecified ligament of left ankle, initial encounter (principal); J44.9 Chronic obstructive pulmonary disease, unspecified; I10 Essential (primary) hypertension; W01.0XXA Fall on same level from slipping, tripping and stumbling without subsequent striking against object, initial encounter; Y93.9 Activity, unspecified; Y92.9 Unspecified place or not applicable; Y99.9 Unspecified external cause status
CPT/HCPCS: 99283

== ENCOUNTER 2021-07-16 15:51 | Emergency (ER) | payer OTHER, MEDICAID, SELFPAY ==
[~2021-07-16] VITALS: Ht 165.1 cm; Wt 57.6 kg
[2021-07-16 15:51] VITALS: BP_SYST 131
[~2021-07-16 15:51] MED LIST changes: +IBUP-2018 PO
[2021-07-16] MEDS ORDERED: NACL 0.9% 1,000 ML IV ONE (16:15)
[2021-07-16 17:06] LABS: BASOPHILS # (AUTO) 0.1 K/uL (0.0-0.2); EOSINOPHILS # (AUTO) 0.2 K/uL (0.0-0.4); EOSINOPHILS % (AUTO) 3.1 % (0.0-4.0); HEMATOCRIT 36.1 % (36-48); HEMOGLOBIN 12.3 g/dL (12.0-16.0); LYMPHOCYTES # (AUTO) 1.4 K/uL (1.0-5.5); LYMPHOCYTES % (AUTO) 24.4 % (20.5-51.5); MEAN CORPUSCULAR HEMOGLOBIN 30 pg (27-31); MEAN CORPUSCULAR HGB CONC 34 % (32-36); MEAN CORPUSCULAR VOLUME 87 fL (79.0-98.0); MONOCYTES # (AUTO) 0.5 K/uL (0.0-1.0); NEUTROPHILS # (AUTO) 3.4 K/uL (1.8-7.7); NEUTROPHILS % (AUTO) 61.5 % (40.0-70.0); PLATELET COUNT (AUTO) 181 K/uL (130-430); RED BLOOD CELL COUNT(AUTO) 4.14 MIL/uL (4.2-6.2); RED CELL DISTRIBUTION WIDTH 13.9 % (9.0-15.0); WHITE BLOOD COUNT (AUTO) 5.6 K/uL (4.8-10.8)
[2021-07-16 17:14] LABS: ANION GAP 5 (5-15); CALCIUM 8.6 mg/dL (8.4-11.0); CHLORIDE 103 mmol/L (98-107); CREATININE 1.31 mg/dL (0.55-1.30); GLUCOSE 104 mg/dL (70-99); POTASSIUM 3.8 mmol/L (3.5-5.1); SODIUM SERUM 137 mmol/L (136-145); UREA NITROGEN, BLOOD 26 mg/dL (8-21)
[2021-07-16 17:23] LABS: ALANINE AMINOTRANSFERASE 18 U/L (12-78); ALBUMIN 3.5 g/dL (3.4-4.8); ASPARTATE AMINOTRANSFERASE 23 U/L (10-37); TOTAL BILIRUBIN 0.3 mg/dL (0.0-1.0)
[2021-07-16 17:35] LABS: BILIRUBIN,URINE NEGATIVE (NEGATIVE); BLOOD, URINE NEGATIVE (NEGATIVE); CLARITY/URINE CLEAR (CLEAR); GLUCOSE,URINE NEGATIVE (NEGATIVE); KETONES,URINE NEGATIVE (NEGATIVE); LEUKOCYTE ESTERASE ,URINE NEGATIVE (NEGATIVE); NITRITE, URINE NEGATIVE (NEGATIVE); PH,URINE 5.5 (5.0-8.0); PROTEIN URINE NEGATIVE (NEGATIVE); UROBILINOGEN,URINE 0.2 (0.2-1.0)
[2021-07-16 17:38] LABS: COLOR,URINE STRAW (YELLOW)
[2021-07-16 19:07] VITALS: BP_SYST 146
== END 2021-07-16 19:24 | disposition home or self-care (01) ==
LOC: SED 15:51
DX: R33.9 Retention of urine, unspecified (principal); I10 Essential (primary) hypertension; J44.9 Chronic obstructive pulmonary disease, unspecified; Z79.899 Other long term (current) drug therapy
CPT/HCPCS: 36415; 51701; 80053; 81003; 84484; 85025; 96360; 96361; 99283; J7030

== ENCOUNTER 2021-12-11 13:47 | Inpatient (IN) | payer OTHER, MEDICAID ==
[~2021-12-11] VITALS: Ht 165.1 cm; Wt 54.0 kg
[2021-12-11 14:04] VITALS: BP_SYST 130
[2021-12-11] MEDS ORDERED: ALBUTEROL SULFATE 0.083% 2.5 MG/3 ML VIAL.NEB INH ONE ×2 (15:00→16:15)
[2021-12-11] MEDS ORDERED: IPRATROPIUM BROM 0.5 MG/2.5 ML VIAL.NEB (ATROVENT) INH ONE ×2 (15:00→16:15)
[2021-12-11] MEDS ORDERED: methylPREDNISolone SOD SUCC/PF 62.5 MG/ML VIAL IVP ONE (15:00)
[2021-12-11 16:04] LABS: BASOPHILS # (AUTO) 0.1 K/uL (0.0-0.2); EOSINOPHILS # (AUTO) 0.5 K/uL (0.0-0.4); EOSINOPHILS % (AUTO) 7.4 % (0.0-4.0); HEMATOCRIT 35.9 % (36-48); HEMOGLOBIN 12.3 g/dL (12.0-16.0); LYMPHOCYTES # (AUTO) 1.7 K/uL (1.0-5.5); LYMPHOCYTES % (AUTO) 24.3 % (20.5-51.5); MEAN CORPUSCULAR HEMOGLOBIN 29 pg (27-31); MEAN CORPUSCULAR HGB CONC 34 % (32-36); MEAN CORPUSCULAR VOLUME 83 fL (79.0-98.0); MONOCYTES # (AUTO) 0.6 K/uL (0.0-1.0); MONOCYTES % (AUTO) 8.3 % (1.7-9.3); NEUTROPHILS # (AUTO) 4.2 K/uL (1.8-7.7); PLATELET COUNT (AUTO) 272 K/uL (130-430); RED BLOOD CELL COUNT(AUTO) 4.31 MIL/uL (4.2-6.2); WHITE BLOOD COUNT (AUTO) 7.1 K/uL (4.8-10.8)
[2021-12-11 16:25] LABS: CALCIUM 9.3 mg/dL (8.4-11.0); CHLORIDE 103 mmol/L (98-107); CREATININE 1.14 mg/dL (0.55-1.30); GLUCOSE 101 mg/dL (70-99); SODIUM SERUM 139 mmol/L (136-145); UREA NITROGEN, BLOOD 18 mg/dL (8-21)
[2021-12-11 16:35] LABS: ALANINE AMINOTRANSFERASE 10 U/L (12-78); ALBUMIN 3.3 g/dL (3.4-4.8); ASPARTATE AMINOTRANSFERASE 22 U/L (10-37); TOTAL BILIRUBIN 0.6 mg/dL (0.0-1.0)
[2021-12-11 17:00] LABS: ANION GAP 10 (5-15)
[2021-12-11] MEDS ORDERED: POTASSIUM CHLORIDE 20 MEQ TAB.PRT.SR PO ONE (17:30)
[2021-12-11] MEDS ORDERED: MAGNESIUM OXIDE 400 MG TABLET PO ONE (17:30)
[2021-12-11] MEDS ORDERED: FLUT1BLS19 INH (18:11)
[2021-12-11] MEDS ORDERED: NOR10 PO (18:11)
[2021-12-11 20:09] LABS: BILIRUBIN,URINE NEGATIVE (NEGATIVE); BLOOD, URINE NEGATIVE (NEGATIVE); CLARITY/URINE CLEAR (CLEAR); COLOR,URINE YELLOW (YELLOW); GLUCOSE,URINE NEGATIVE (NEGATIVE); KETONES,URINE NEGATIVE (NEGATIVE); LEUKOCYTE ESTERASE ,URINE 1+ (NEGATIVE); NITRITE, URINE NEGATIVE (NEGATIVE); PH,URINE 5.5 (5.0-8.0); PROTEIN URINE NEGATIVE (NEGATIVE); UROBILINOGEN,URINE 0.2 (0.2-1.0)
[2021-12-11 20:34] LABS: BACTERIA,URINE FEW /HPF (None Seen); HYALINE CASTS, URINE 0-10 /LPF (None Seen); RBC,URINE 0-3 /HPF (0-3); WBC,URINE 0-3 /HPF (0-3)
[2021-12-11 22:14] VITALS: BP_SYST 137
[2021-12-12] VITALS: BP_SYST 140
[2021-12-12] MEDS ORDERED: BUDESONIDE 0.5 MG/2 ML AMPUL.NEB INH ONE (07:45)
[2021-12-12 08:20] VITALS: BP_SYST 143
[2021-12-12 08:57] VITALS: BP_SYST 137
[2021-12-12] MEDS: METHYLPREDNISOLONE SOD SUCC 40 MG/ML VIAL IVP SCH ×2 (10:23→20:23)
[2021-12-12] MEDS: IPRATROPIUM/ALBUTEROL SULFATE 3 ML AMPUL.NEB (DUONEB) INH SCH ×4 (11:29→23:47)
[2021-12-12 12:47] VITALS: BP_SYST 152
[2021-12-12] MEDS ORDERED: ASPIRIN 81 MG TABLET(ECOTRIN) PO ONE (16:00)
[2021-12-12] MEDS ORDERED: IBUPROFEN 400 MG TABLET PO PRN (16:00)
[2021-12-12] MEDS ORDERED: LORazepam 1 MG TABLET PO ONE (16:00)
[2021-12-12] MEDS ORDERED: VILANTER INH SCH (16:00)
[2021-12-12] MEDS ORDERED: lisinopriL 20 MG TABLET PO ONE (16:00)
[2021-12-12] MEDS ORDERED: [UNRECOGNIZED DRUG - OTHER] INH SCH (16:00)
[2021-12-12] MEDS ORDERED: FLUTICASONE INH SCH (16:00)
[2021-12-12] MEDS ORDERED: amLODIPine BESYLATE 10 MG TABLET PO ONE (16:00)
[2021-12-12] MEDS ORDERED: FUROSEMIDE 40 MG TABLET PO ONE (16:00)
[2021-12-12 16:59] VITALS: BP_SYST 143
[2021-12-12 20:00] VITALS: BP_SYST 120
[2021-12-12] MEDS: BUDESONIDE 0.5 MG/2 ML AMPUL.NEB INH SCH (20:09)
[2021-12-12] MEDS: ATORVASTATIN 10 MG TABLET PO SCH (20:23)
[2021-12-12] MEDS: LORazepam 1 MG TABLET PO SCH (20:24)
[2021-12-13] VITALS: BP_SYST 142
[2021-12-13] MEDS: IPRATROPIUM/ALBUTEROL SULFATE 3 ML AMPUL.NEB (DUONEB) INH SCH ×6 (03:09→22:43)
[2021-12-13] MEDS: LEVOTHYROXINE SODIUM 0.05 MG TABLET PO SCH (06:11)
[2021-12-13 06:57] LABS: BASOPHILS % (AUTO) 0.1 % (0.0-2.0); EOSINOPHILS % (AUTO) 0.1 % (0.0-4.0); HEMATOCRIT 28.9 % (36-48); HEMOGLOBIN 10.1 g/dL (12.0-16.0); LYMPHOCYTES # (AUTO) 0.4 K/uL (1.0-5.5); LYMPHOCYTES % (AUTO) 3.8 % (20.5-51.5); MEAN CORPUSCULAR HEMOGLOBIN 29 pg (27-31); MEAN CORPUSCULAR HGB CONC 35 % (32-36); MEAN CORPUSCULAR VOLUME 84 fL (79.0-98.0); MONOCYTES # (AUTO) 0.3 K/uL (0.0-1.0); MONOCYTES % (AUTO) 3.2 % (1.7-9.3); NEUTROPHILS # (AUTO) 9.6 K/uL (1.8-7.7); NEUTROPHILS % (AUTO) 92.8 % (40.0-70.0); PLATELET COUNT (AUTO) 280 K/uL (130-430); RED BLOOD CELL COUNT(AUTO) 3.45 MIL/uL (4.2-6.2); RED CELL DISTRIBUTION WIDTH 14.2 % (9.0-15.0); WHITE BLOOD COUNT (AUTO) 10.3 K/uL (4.8-10.8)
[2021-12-13] MEDS: BUDESONIDE 0.5 MG/2 ML AMPUL.NEB INH SCH ×2 (07:52→20:39)
[2021-12-13 07:57] LABS: ANION GAP 14 (5-15); CALCIUM 8.7 mg/dL (8.4-11.0); CHLORIDE 102 mmol/L (98-107); CREATININE 1.57 mg/dL (0.55-1.30); GLUCOSE 236 mg/dL (70-99); SODIUM SERUM 140 mmol/L (136-145); UREA NITROGEN, BLOOD 30 mg/dL (8-21)
[2021-12-13 08:00] VITALS: BP_SYST 130
[2021-12-13] MEDS ORDERED: VILANTER INH SCH (09:00)
[2021-12-13] MEDS ORDERED: [UNRECOGNIZED DRUG - OTHER] INH SCH (09:00)
[2021-12-13] MEDS ORDERED: FLUTICASONE INH SCH (09:00)
[2021-12-13] MEDS: ASPIRIN 81 MG TABLET(ECOTRIN) PO SCH (09:06)
[2021-12-13] MEDS: lisinopriL 20 MG TABLET PO SCH (09:06)
[2021-12-13] MEDS: amLODIPine BESYLATE 10 MG TABLET PO SCH (09:07)
[2021-12-13] MEDS: FUROSEMIDE 40 MG TABLET PO SCH (09:07)
[2021-12-13] MEDS: METHYLPREDNISOLONE SOD SUCC 40 MG/ML VIAL IVP SCH ×2 (09:08→22:48)
[2021-12-13] MEDS: LORazepam 1 MG TABLET PO SCH ×3 (09:15→22:49)
[2021-12-13] MEDS: LEVOFLOXACIN 250 MG/D5W 250 ML IV SCH (09:16)
[2021-12-13 09:38] LABS: POTASSIUM 2.7 mmol/L (3.5-5.1)
[2021-12-13] MEDS ORDERED: POTASSIUM CHLORIDE 20 MEQ TAB.PRT.SR PO ONE ×2 (11:00→17:15)
[2021-12-13 12:00] VITALS: BP_SYST 136
[2021-12-13 16:00] VITALS: BP_SYST 113
[2021-12-13 16:53] LABS: ALANINE AMINOTRANSFERASE 22 U/L (12-78); ALBUMIN 2.8 g/dL (3.4-4.8); ANION GAP 10 (5-15); ASPARTATE AMINOTRANSFERASE 37 U/L (10-37); CHLORIDE 100 mmol/L (98-107); CREATININE 1.52 mg/dL (0.55-1.30); GLUCOSE 210 mg/dL (70-99); POTASSIUM 3.2 mmol/L (3.5-5.1); SODIUM SERUM 135 mmol/L (136-145); TOTAL BILIRUBIN 0.3 mg/dL (0.0-1.0); UREA NITROGEN, BLOOD 35 mg/dL (8-21)
[2021-12-13 20:00] VITALS: BP_SYST 129
[2021-12-13] MEDS: ATORVASTATIN 10 MG TABLET PO SCH (22:48)
[2021-12-14] VITALS: BP_SYST 124
[2021-12-14] MEDS: IPRATROPIUM/ALBUTEROL SULFATE 3 ML AMPUL.NEB (DUONEB) INH SCH ×6 (03:00→23:47)
[2021-12-14] MEDS: LEVOTHYROXINE SODIUM 0.05 MG TABLET PO SCH (06:29)
[2021-12-14] MEDS: BUDESONIDE 0.5 MG/2 ML AMPUL.NEB INH SCH ×2 (07:00→21:20)
[2021-12-14] MEDS ORDERED: HALOPERIDOL LACTATE 5 MG/ML VIAL ONE (08:14)
[2021-12-14 08:15] LABS: BASOPHILS % (AUTO) 0.1 % (0.0-2.0); EOSINOPHILS % (AUTO) 0.1 % (0.0-4.0); HEMATOCRIT 29.4 % (36-48); HEMOGLOBIN 10.3 g/dL (12.0-16.0); LYMPHOCYTES # (AUTO) 0.5 K/uL (1.0-5.5); LYMPHOCYTES % (AUTO) 5.1 % (20.5-51.5); MEAN CORPUSCULAR HEMOGLOBIN 29 pg (27-31); MEAN CORPUSCULAR HGB CONC 35 % (32-36); MEAN CORPUSCULAR VOLUME 84 fL (79.0-98.0); MONOCYTES # (AUTO) 0.2 K/uL (0.0-1.0); MONOCYTES % (AUTO) 2.4 % (1.7-9.3); NEUTROPHILS # (AUTO) 9.4 K/uL (1.8-7.7); NEUTROPHILS % (AUTO) 92.3 % (40.0-70.0); PLATELET COUNT (AUTO) 278 K/uL (130-430); RED CELL DISTRIBUTION WIDTH 14.4 % (9.0-15.0); WHITE BLOOD COUNT (AUTO) 10.2 K/uL (4.8-10.8)
[2021-12-14] MEDS ORDERED: HALOPERIDOL LACTATE 5 MG/ML VIAL IM ONE (08:15)
[2021-12-14] MEDS: ASPIRIN 81 MG TABLET(ECOTRIN) PO SCH (09:00)
[2021-12-14] MEDS: LORazepam 1 MG TABLET PO SCH ×3 (09:00→21:00)
[2021-12-14 09:35] LABS: ALANINE AMINOTRANSFERASE 24 U/L (12-78); ALBUMIN 2.6 g/dL (3.4-4.8); ANION GAP 7 (5-15); ASPARTATE AMINOTRANSFERASE 33 U/L (10-37); CALCIUM 8.7 mg/dL (8.4-11.0); CHLORIDE 104 mmol/L (98-107); CREATININE 1.44 mg/dL (0.55-1.30); GLUCOSE 161 mg/dL (70-99); POTASSIUM 4.6 mmol/L (3.5-5.1); SODIUM SERUM 137 mmol/L (136-145); TOTAL BILIRUBIN 0.3 mg/dL (0.0-1.0); UREA NITROGEN, BLOOD 36 mg/dL (8-21)
[2021-12-14 09:39] VITALS: BP_SYST 124
[2021-12-14 10:00] VITALS: BP_SYST 125
[2021-12-14] MEDS: lisinopriL 20 MG TABLET PO SCH (11:35)
[2021-12-14] MEDS: METHYLPREDNISOLONE SOD SUCC 40 MG/ML VIAL IVP SCH ×2 (11:36→20:14)
[2021-12-14] MEDS: amLODIPine BESYLATE 10 MG TABLET PO SCH (11:36)
[2021-12-14] MEDS: LEVOFLOXACIN 250 MG/D5W 250 ML IV SCH (11:37)
[2021-12-14] MEDS: FUROSEMIDE 40 MG TABLET PO SCH (11:52)
[2021-12-14 13:49] VITALS: BP_SYST 134
[2021-12-14 18:55] VITALS: BP_SYST 118
[2021-12-14 20:00] VITALS: BP_SYST 112
[2021-12-14] MEDS: ATORVASTATIN 10 MG TABLET PO SCH (20:14)
[2021-12-15] VITALS (7 sets, daily range): BP systolic 121–131
[2021-12-15] MEDS: IPRATROPIUM/ALBUTEROL SULFATE 3 ML AMPUL.NEB (DUONEB) INH SCH ×5 (03:00→20:49)
[2021-12-15] MEDS: LEVOTHYROXINE SODIUM 0.05 MG TABLET PO SCH (06:46)
[2021-12-15] MEDS: BUDESONIDE 0.5 MG/2 ML AMPUL.NEB INH SCH ×2 (07:47→20:49)
[2021-12-15] MEDS: LEVOFLOXACIN 250 MG/D5W 250 ML IV SCH (09:54)
[2021-12-15] MEDS: lisinopriL 20 MG TABLET PO SCH (09:55)
[2021-12-15] MEDS: METHYLPREDNISOLONE SOD SUCC 40 MG/ML VIAL IVP SCH (09:55)
[2021-12-15] MEDS: LORazepam 1 MG TABLET PO SCH ×3 (09:56→21:00)
[2021-12-15] MEDS: amLODIPine BESYLATE 10 MG TABLET PO SCH (09:56)
[2021-12-15] MEDS: ASPIRIN 81 MG TABLET(ECOTRIN) PO SCH (09:57)
[2021-12-15] MEDS: FUROSEMIDE 40 MG TABLET PO SCH (09:57)
[2021-12-15] MEDS: predniSONE 20 MG TABLET PO SCH (23:06)
[2021-12-15] MEDS: ATORVASTATIN 10 MG TABLET PO SCH (23:06)
[2021-12-16] VITALS: BP_SYST 124
[2021-12-16] MEDS: IPRATROPIUM/ALBUTEROL SULFATE 3 ML AMPUL.NEB (DUONEB) INH SCH ×7 (03:00→23:16)
[2021-12-16] MEDS: LEVOTHYROXINE SODIUM 0.05 MG TABLET PO SCH (06:29)
[2021-12-16 06:53] LABS: BASOPHILS % (AUTO) 0.1 % (0.0-2.0); HEMATOCRIT 29.4 % (36-48); HEMOGLOBIN 10.3 g/dL (12.0-16.0); LYMPHOCYTES # (AUTO) 0.8 K/uL (1.0-5.5); LYMPHOCYTES % (AUTO) 11.2 % (20.5-51.5); MEAN CORPUSCULAR HEMOGLOBIN 29 pg (27-31); MEAN CORPUSCULAR HGB CONC 35 % (32-36); MEAN CORPUSCULAR VOLUME 84 fL (79.0-98.0); MONOCYTES # (AUTO) 0.4 K/uL (0.0-1.0); MONOCYTES % (AUTO) 5.9 % (1.7-9.3); NEUTROPHILS # (AUTO) 6.2 K/uL (1.8-7.7); NEUTROPHILS % (AUTO) 82.8 % (40.0-70.0); PLATELET COUNT (AUTO) 271 K/uL (130-430); RED CELL DISTRIBUTION WIDTH 14.5 % (9.0-15.0); WHITE BLOOD COUNT (AUTO) 7.4 K/uL (4.8-10.8)
[2021-12-16] MEDS: BUDESONIDE 0.5 MG/2 ML AMPUL.NEB INH SCH ×2 (07:00→20:08)
[2021-12-16 07:12] LABS: ANION GAP 8 (5-15); CALCIUM 8.7 mg/dL (8.4-11.0); CHLORIDE 105 mmol/L (98-107); CREATININE 1.52 mg/dL (0.55-1.30); GLUCOSE 149 mg/dL (70-99); POTASSIUM 4.6 mmol/L (3.5-5.1); SODIUM SERUM 139 mmol/L (136-145); UREA NITROGEN, BLOOD 41 mg/dL (8-21)
[2021-12-16] MEDS: LEVOFLOXACIN 250 MG/D5W 250 ML IV SCH (08:00)
[2021-12-16] MEDS: LORazepam 1 MG TABLET PO SCH ×3 (09:00→21:00)
[2021-12-16] MEDS: predniSONE 20 MG TABLET PO SCH ×2 (10:29→22:32)
[2021-12-16] MEDS: lisinopriL 20 MG TABLET PO SCH (10:29)
[2021-12-16] MEDS: ASPIRIN 81 MG TABLET(ECOTRIN) PO SCH (10:29)
[2021-12-16] MEDS: FUROSEMIDE 40 MG TABLET PO SCH (10:29)
[2021-12-16] MEDS: amLODIPine BESYLATE 10 MG TABLET PO SCH (10:30)
[2021-12-16] MEDS ORDERED: PRED20TA BC (15:19)
[2021-12-16 20:00] VITALS: BP_SYST 128
[2021-12-16] MEDS: ATORVASTATIN 10 MG TABLET PO SCH (22:32)
[2021-12-17] MEDS: IPRATROPIUM/ALBUTEROL SULFATE 3 ML AMPUL.NEB (DUONEB) INH SCH ×4 (03:00→11:49)
[2021-12-17] MEDS: LEVOTHYROXINE SODIUM 0.05 MG TABLET PO SCH (06:07)
[2021-12-17] MEDS: BUDESONIDE 0.5 MG/2 ML AMPUL.NEB INH SCH (07:44)
[2021-12-17] MEDS: LEVOFLOXACIN 250 MG/D5W 250 ML IV SCH (08:00)
[2021-12-17] MEDS: LORazepam 1 MG TABLET PO SCH (09:00)
[2021-12-17] MEDS: FUROSEMIDE 40 MG TABLET PO SCH (09:12)
[2021-12-17] MEDS: predniSONE 20 MG TABLET PO SCH (09:17)
[2021-12-17] MEDS: lisinopriL 20 MG TABLET PO SCH (09:17)
[2021-12-17] MEDS: ASPIRIN 81 MG TABLET(ECOTRIN) PO SCH (09:17)
[2021-12-17] MEDS: amLODIPine BESYLATE 10 MG TABLET PO SCH (09:17)
== END 2021-12-17 12:00 | disposition home or self-care (01) | DRG 189 ==
LOC: SED 13:47 → STU 17:21 → SMU 12-14 16:17
PROVIDERS: ADMIT Internal Medicine; ATTEND Internal Medicine
DX: J96.21 Acute and chronic respiratory failure with hypoxia (principal); J18.9 Pneumonia, unspecified organism; N17.0 Acute kidney failure with tubular necrosis; J84.9 Interstitial pulmonary disease, unspecified; J44.1 Chronic obstructive pulmonary disease with (acute) exacerbation; N18.31 Chronic kidney disease, stage 3a; I12.9 Hypertensive chronic kidney disease with stage 1 through stage 4 chronic kidney disease, or unspecified chronic kidney disease; Z20.822 Contact with and (suspected) exposure to COVID-19; I25.10 Atherosclerotic heart disease of native coronary artery without angina pectoris; E78.5 Hyperlipidemia, unspecified; M19.90 Unspecified osteoarthritis, unspecified site; E03.9 Hypothyroidism, unspecified; Z79.82 Long term (current) use of aspirin; Z79.899 Other long term (current) drug therapy
CPT/HCPCS: 36415; 71045; 80048; 80053; 81000; 83605; 83735; 83880; 84484; 85025; 87040; 87086; 93005; 94010; 94640; 94760; 96374; 99285; G0378; J1030; J1630; J1956; J2930; J7512; J7613; J7626

== ENCOUNTER 2024-01-15 00:17 | Inpatient (IN) | payer OTHER, MEDICAID ==
[2024-01-15] VITALS (7 sets, daily range): BP systolic 111–154; PULSE 48–84; RESP 16–22; TEMP 97.1–98.9; O2SAT 95–100
[~2024-01-15] VITALS: Ht 167.6 cm; Wt 51.3 kg
[~2024-01-15 00:17] MED LIST changes: +APIX2.5T PO; -ASPI-1393 PO; -ATOR10TA68 PO; +ATOR40TA68 PO; +CEL20 PO; -FURO-149 PO; -HYDR12.55 PO; +HYDR25TA86 PO; -IBUP-2018 PO; +LEVO25TA2 PO; -LISI40TA13 PO; -LORA-258 PO; +METO-442 PO; -METO25TA3 PO; +MIRT-147 PO; +SPIR25TA6 PO; -SYN50 PO; -ZIT250 PO
[2024-01-15] MEDS ORDERED: MELA1TAB14 PO (00:39)
[2024-01-15 01:34] LABS: BASOPHILS % (AUTO) 0.7 % (0.0-2.0); EOSINOPHILS # (AUTO) 0.2 K/uL (0.0-0.4); HEMATOCRIT 27.8 % (36-48); HEMOGLOBIN 9.7 g/dL (12.0-16.0); LYMPHOCYTES # (AUTO) 2.4 K/uL (1.0-5.5); LYMPHOCYTES % (AUTO) 37.6 % (20.5-51.5); MEAN CORPUSCULAR HEMOGLOBIN 32 pg (27-31); MEAN CORPUSCULAR HGB CONC 35 % (32-36); MEAN CORPUSCULAR VOLUME 90 fL (79.0-98.0); MONOCYTES # (AUTO) 0.9 K/uL (0.0-1.0); MONOCYTES % (AUTO) 14.7 % (1.7-9.3); NEUTROPHILS # (AUTO) 2.7 K/uL (1.8-7.7); PLATELET COUNT (AUTO) 165 K/uL (130-430); RED BLOOD CELL COUNT(AUTO) 3.08 MIL/uL (4.2-6.2); RED CELL DISTRIBUTION WIDTH 15.9 % (9.0-15.0); WHITE BLOOD COUNT (AUTO) 6.3 K/uL (4.8-10.8)
[2024-01-15 02:00] LABS: ANION GAP 5 (5-15); CALCIUM 8.6 mg/dL (8.4-11.0); CARBON DIOXIDE 29 mmol/L (23-29); CHLORIDE 106 mmol/L (98-107); CREATININE 2.01 mg/dL (0.55-1.30); GLUCOSE 96 mg/dL (74-106); POTASSIUM 5.2 mmol/L (3.5-5.1); SODIUM SERUM 140 mmol/L (136-145); UREA NITROGEN, BLOOD 62 mg/dL (8-21)
[2024-01-15] MEDS: 0.45% NACL 1,000 ML IV SCH (05:00)
[2024-01-15] MEDS: PANTOPRAZOLE SODIUM 40 MG/VIAL (PROTONIX) IVP SCH (09:01)
[2024-01-15 11:01] LABS: BASOPHILS # (AUTO) 0.1 K/uL (0.0-0.2); EOSINOPHILS # (AUTO) 0.3 K/uL (0.0-0.4); EOSINOPHILS % (AUTO) 4.2 % (0.0-4.0); HEMATOCRIT 29.1 % (36-48); HEMOGLOBIN 9.8 g/dL (12.0-16.0); LYMPHOCYTES # (AUTO) 1.9 K/uL (1.0-5.5); LYMPHOCYTES % (AUTO) 31.5 % (20.5-51.5); MEAN CORPUSCULAR HEMOGLOBIN 31 pg (27-31); MEAN CORPUSCULAR HGB CONC 34 % (32-36); MEAN CORPUSCULAR VOLUME 91 fL (79.0-98.0); MONOCYTES # (AUTO) 0.8 K/uL (0.0-1.0); MONOCYTES % (AUTO) 12.7 % (1.7-9.3); NEUTROPHILS % (AUTO) 50.6 % (40.0-70.0); PLATELET COUNT (AUTO) 175 K/uL (130-430); RED CELL DISTRIBUTION WIDTH 15.4 % (9.0-15.0)
[2024-01-15] MEDS: LEVOTHYROXINE SODIUM 0.025 MG TABLET PO ONE (11:05)
[2024-01-15] MEDS: CITALOPRAM HYDROBROMIDE 20 MG TABLET PO ONE (11:05)
[2024-01-15] MEDS: METOPROLOL TARTRATE 50 MG TABLET PO ONE (11:05)
[2024-01-15 11:35] LABS: ALANINE AMINOTRANSFERASE 21 U/L (12-78); ALBUMIN 3.2 g/dL (3.4-4.8); ANION GAP 6 (5-15); ASPARTATE AMINOTRANSFERASE 20 U/L (10-37); CALCIUM 8.6 mg/dL (8.4-11.0); CARBON DIOXIDE 26 mmol/L (23-29); CHLORIDE 109 mmol/L (98-107); CREATININE 1.87 mg/dL (0.55-1.30); GLUCOSE 93 mg/dL (74-106); POTASSIUM 5.4 mmol/L (3.5-5.1); SODIUM SERUM 141 mmol/L (136-145); TOTAL BILIRUBIN 0.6 mg/dL (0.0-1.0); TOTAL PROTEIN, SERUM 6.5 g/dL (6.4-8.3); UREA NITROGEN, BLOOD 55 mg/dL (8-21)
[2024-01-15] MEDS ORDERED: CALCIUM GLUCONATE 1 GM/10 ML VIAL IVP ONE (14:30)
[2024-01-15] MEDS: PIPERACILLIN/TAZO 3.375 GM in NS 50 ML IV SCH (15:05)
[2024-01-15] MEDS: SODIUM ZIRCONIUM CYCLOSILICATE 10 GM POWD.PACK PO ONE (15:18)
[2024-01-15] MEDS: CALCIUM GLUC 1 GM/100ML-NACL 100 ML IV ONE (15:19)
[2024-01-15 19:24] LABS: ANION GAP 10 (5-15); CALCIUM 8.7 mg/dL (8.4-11.0); CARBON DIOXIDE 24 mmol/L (23-29); CHLORIDE 106 mmol/L (98-107); CREATININE 1.85 mg/dL (0.55-1.30); GLUCOSE 151 mg/dL (74-106); SODIUM SERUM 140 mmol/L (136-145); UREA NITROGEN, BLOOD 50 mg/dL (8-21)
[2024-01-15] MEDS ORDERED: NON-FORMULARY MEDICATION (Melatonin 1 MG) PO SCH (21:00)
[2024-01-15] MEDS: MIRTAZAPINE 15 MG TABLET PO SCH (21:21)
[2024-01-15] MEDS: METOPROLOL TARTRATE 50 MG TABLET PO SCH (21:21)
[2024-01-16 00:18] VITALS: BP_SYST 111; PULSE 74; RESP 16; TEMP 98.8; O2SAT 96
[2024-01-16 06:31] LABS: BASOPHILS % (AUTO) 0.8 % (0.0-2.0); EOSINOPHILS # (AUTO) 0.3 K/uL (0.0-0.4); HEMATOCRIT 29.3 % (36-48); HEMOGLOBIN 9.9 g/dL (12.0-16.0); LYMPHOCYTES # (AUTO) 1.8 K/uL (1.0-5.5); LYMPHOCYTES % (AUTO) 33.4 % (20.5-51.5); MEAN CORPUSCULAR HEMOGLOBIN 30 pg (27-31); MEAN CORPUSCULAR HGB CONC 34 % (32-36); MEAN CORPUSCULAR VOLUME 90 fL (79.0-98.0); MONOCYTES # (AUTO) 0.6 K/uL (0.0-1.0); MONOCYTES % (AUTO) 10.7 % (1.7-9.3); NEUTROPHILS # (AUTO) 2.6 K/uL (1.8-7.7); NEUTROPHILS % (AUTO) 50.1 % (40.0-70.0); PLATELET COUNT (AUTO) 160 K/uL (130-430); RED BLOOD CELL COUNT(AUTO) 3.26 MIL/uL (4.2-6.2); RED CELL DISTRIBUTION WIDTH 15.2 % (9.0-15.0); WHITE BLOOD COUNT (AUTO) 5.3 K/uL (4.8-10.8)
[2024-01-16] MEDS: LEVOTHYROXINE SODIUM 0.025 MG TABLET PO SCH (06:47)
[2024-01-16 07:07] LABS: ALANINE AMINOTRANSFERASE 49 U/L (12-78); ANION GAP 10 (5-15); ASPARTATE AMINOTRANSFERASE 56 U/L (10-37); CALCIUM 8.8 mg/dL (8.4-11.0); CARBON DIOXIDE 24 mmol/L (23-29); CHLORIDE 108 mmol/L (98-107); CREATININE 2.05 mg/dL (0.55-1.30); GLUCOSE 86 mg/dL (74-106); POTASSIUM 4.2 mmol/L (3.5-5.1); SODIUM SERUM 142 mmol/L (136-145); TOTAL BILIRUBIN 0.8 mg/dL (0.0-1.0); TOTAL PROTEIN, SERUM 6.4 g/dL (6.4-8.3); UREA NITROGEN, BLOOD 42 mg/dL (8-21)
[2024-01-16 08:10] VITALS: BP_SYST 139; PULSE 44; RESP 12; TEMP 98.5; O2SAT 99
[2024-01-16] MEDS: CITALOPRAM HYDROBROMIDE 20 MG TABLET PO SCH (10:13)
[2024-01-16] MEDS: ATORVASTATIN 20 MG TABLET PO SCH (10:15)
[2024-01-16 11:13] VITALS: BP_SYST 119; PULSE 51; RESP 17; TEMP 98.5; O2SAT 97
[2024-01-16 15:18] VITALS: BP_SYST 141; PULSE 45; RESP 18; TEMP 98.9; O2SAT 99
[2024-01-16 20:00] VITALS: BP_SYST 135; PULSE 49; RESP 16; TEMP 98.4; O2SAT 98
[2024-01-16] MEDS: MELATONIN 1 MG PO SCH (21:00)
[2024-01-17 00:12] VITALS: BP_SYST 129; PULSE 51; RESP 18; TEMP 98.5; O2SAT 97
[2024-01-17 06:28] LABS: BASOPHILS # (AUTO) 0.1 K/uL (0.0-0.2); BASOPHILS % (AUTO) 0.9 % (0.0-2.0); EOSINOPHILS # (AUTO) 0.3 K/uL (0.0-0.4); EOSINOPHILS % (AUTO) 5.6 % (0.0-4.0); HEMATOCRIT 26.7 % (36-48); LYMPHOCYTES # (AUTO) 2.4 K/uL (1.0-5.5); LYMPHOCYTES % (AUTO) 39.9 % (20.5-51.5); MEAN CORPUSCULAR HEMOGLOBIN 30 pg (27-31); MEAN CORPUSCULAR HGB CONC 34 % (32-36); MEAN CORPUSCULAR VOLUME 90 fL (79.0-98.0); MONOCYTES # (AUTO) 0.7 K/uL (0.0-1.0); MONOCYTES % (AUTO) 11.9 % (1.7-9.3); NEUTROPHILS # (AUTO) 2.5 K/uL (1.8-7.7); NEUTROPHILS % (AUTO) 41.7 % (40.0-70.0); PLATELET COUNT (AUTO) 153 K/uL (130-430); RED BLOOD CELL COUNT(AUTO) 2.97 MIL/uL (4.2-6.2); RED CELL DISTRIBUTION WIDTH 15.1 % (9.0-15.0)
[2024-01-17 06:59] LABS: ALANINE AMINOTRANSFERASE 40 U/L (12-78); ALBUMIN 2.8 g/dL (3.4-4.8); ANION GAP 8 (5-15); ASPARTATE AMINOTRANSFERASE 34 U/L (10-37); CALCIUM 8.2 mg/dL (8.4-11.0); CARBON DIOXIDE 25 mmol/L (23-29); CHLORIDE 109 mmol/L (98-107); CREATININE 1.95 mg/dL (0.55-1.30); GLUCOSE 89 mg/dL (74-106); POTASSIUM 4.2 mmol/L (3.5-5.1); SODIUM SERUM 142 mmol/L (136-145); TOTAL BILIRUBIN 0.6 mg/dL (0.0-1.0); TOTAL PROTEIN, SERUM 6.1 g/dL (6.4-8.3); UREA NITROGEN, BLOOD 34 mg/dL (8-21)
[2024-01-17 08:00] VITALS: BP_SYST 143; PULSE 57; RESP 18; TEMP 97.2; O2SAT 96
[2024-01-17 11:29] VITALS: BP_SYST 131; PULSE 48; RESP 16; TEMP 97.6; O2SAT 99
[2024-01-17] MEDS ORDERED: LORazepam 1 MG TABLET PO PRN (11:30)
[2024-01-17 15:03] VITALS: BP_SYST 137; PULSE 51; RESP 15; TEMP 97.4; O2SAT 97
[2024-01-17 20:00] VITALS: BP_SYST 129; PULSE 56; RESP 16; TEMP 97.3; O2SAT 98
[2024-01-17 22:33] LABS: TOTAL IRON BIND. CAPACITY 195 ug/dL (250-450)
[2024-01-18] VITALS: BP_SYST 147; PULSE 55; RESP 16; TEMP 99.3; O2SAT 96
[2024-01-18 06:51] LABS: BASOPHILS # (AUTO) 0.1 K/uL (0.0-0.2); BASOPHILS % (AUTO) 0.7 % (0.0-2.0); EOSINOPHILS # (AUTO) 0.4 K/uL (0.0-0.4); EOSINOPHILS % (AUTO) 4.5 % (0.0-4.0); HEMATOCRIT 29.6 % (36-48); HEMOGLOBIN 9.8 g/dL (12.0-16.0); LYMPHOCYTES # (AUTO) 1.6 K/uL (1.0-5.5); LYMPHOCYTES % (AUTO) 19.2 % (20.5-51.5); MEAN CORPUSCULAR HEMOGLOBIN 30 pg (27-31); MEAN CORPUSCULAR HGB CONC 33 % (32-36); MEAN CORPUSCULAR VOLUME 90 fL (79.0-98.0); MONOCYTES # (AUTO) 0.7 K/uL (0.0-1.0); MONOCYTES % (AUTO) 8.3 % (1.7-9.3); NEUTROPHILS # (AUTO) 5.5 K/uL (1.8-7.7); NEUTROPHILS % (AUTO) 67.3 % (40.0-70.0); PLATELET COUNT (AUTO) 175 K/uL (130-430); RED BLOOD CELL COUNT(AUTO) 3.28 MIL/uL (4.2-6.2); RED CELL DISTRIBUTION WIDTH 15.3 % (9.0-15.0); WHITE BLOOD COUNT (AUTO) 8.1 K/uL (4.8-10.8)
[2024-01-18 07:10] LABS: ANION GAP 11 (5-15); CALCIUM 8.7 mg/dL (8.4-11.0); CARBON DIOXIDE 23 mmol/L (23-29); CHLORIDE 109 mmol/L (98-107); CREATININE 1.71 mg/dL (0.55-1.30); GLUCOSE 105 mg/dL (74-106); POTASSIUM 3.6 mmol/L (3.5-5.1); SODIUM SERUM 143 mmol/L (136-145); UREA NITROGEN, BLOOD 34 mg/dL (8-21)
[2024-01-18] MEDS: NIFEdipine 30 MG TAB.ER.24 PO SCH (10:04)
[2024-01-18] MEDS: METOPROLOL TARTRATE 25 MG TABLET PO SCH (10:04)
[2024-01-18] MEDS ORDERED: PROI40 IVP (10:56)
[2024-01-18 11:09] VITALS: BP_SYST 159; PULSE 61; RESP 16; TEMP 97.1; O2SAT 100
[2024-01-18] MEDS: LEVOFLOXACIN 250 MG/D5W 50 ML IV SCH (11:58)
[2024-01-18 13:19] VITALS: BP_SYST 159; PULSE 61; RESP 16; TEMP 97.1; O2SAT 100
[2024-01-18 15:03] VITALS: BP_SYST 144; PULSE 65; RESP 16; TEMP 98.8; O2SAT 96
[2024-01-18] MEDS ORDERED: PANT40TA45 PO (16:40)
[2024-01-18] MEDS ORDERED: PRO40 PO (16:41)
[2024-01-18] MEDS ORDERED: metroNIDAZOLE 500 MG TABLET PO SCH (21:00)
== END 2024-01-18 17:15 | disposition home or self-care (01) | DRG 377 ==
LOC: SED 00:17 → STU 03:34 → SMU 01-16 10:40
PROVIDERS: ADMIT Specialist; ATTEND Specialist
DX: K57.33 Diverticulitis of large intestine without perforation or abscess with bleeding (principal); N17.0 Acute kidney failure with tubular necrosis; A09 Infectious gastroenteritis and colitis, unspecified; D62 Acute posthemorrhagic anemia; Z68.1 Body mass index [BMI] 19.9 or less, adult; E87.5 Hyperkalemia; E78.5 Hyperlipidemia, unspecified; I48.91 Unspecified atrial fibrillation; I25.10 Atherosclerotic heart disease of native coronary artery without angina pectoris; E03.9 Hypothyroidism, unspecified; F32.A Depression, unspecified; I12.9 Hypertensive chronic kidney disease with stage 1 through stage 4 chronic kidney disease, or unspecified chronic kidney disease; N18.9 Chronic kidney disease, unspecified; R63.6 Underweight; Z79.01 Long term (current) use of anticoagulants; Z79.899 Other long term (current) drug therapy
CPT/HCPCS: 36415; 80048; 80053; 83540; 83550; 85025; 87230; 93005; 97110-GP; 97116-GP; 97163-GP; 97530-GP; G0378; J0612; J1956; J2470; J2543

== ENCOUNTER 2024-02-16 13:33 | Inpatient (IN) | payer OTHER, MEDICAID ==
[~2024-02-16] VITALS: Ht 182.9 cm; Wt 54.2 kg
[~2024-02-16 13:33] MED LIST changes: +MELA1TAB14 PO; +PANT40TA45 PO; +PRO40 PO; +PROI40 IVP
[2024-02-16] MEDS: MECLIZINE HCL 25 MG TABLET (ANITVERT) PO ONE (15:30)
[2024-02-16 15:31] LABS: HEMATOCRIT 26.9 % (36-48); HEMOGLOBIN 9.4 g/dL (12.0-16.0); MEAN CORPUSCULAR HEMOGLOBIN 31 pg (27-31); MEAN CORPUSCULAR HGB CONC 35 % (32-36); MEAN CORPUSCULAR VOLUME 89 fL (79.0-98.0); PLATELET COUNT (AUTO) 151 K/uL (130-430); RED BLOOD CELL COUNT(AUTO) 3.02 MIL/uL (4.2-6.2); RED CELL DISTRIBUTION WIDTH 13.9 % (9.0-15.0); WHITE BLOOD COUNT (AUTO) 4.2 K/uL (4.8-10.8)
[2024-02-16 15:41] VITALS: BP_SYST 104; PULSE 115; RESP 16; TEMP 97; O2SAT 97
[2024-02-16 16:19] LABS: BAND % (MANUAL) 0 % (0-6); EOSINOPHILS % (MANUAL) 4 % (0-7); LYMPHOCYTES % (MANUAL) 38 % (20-46); MONOCYTES % (MANUAL) 7 % (0-11)
[2024-02-16 16:20] LABS: BASOPHILS % (MANUAL) 0 % (0-2); PLATELET ESTIMATE ADEQUATE (ADEQUATE)
[2024-02-16 16:21] LABS: OVALOCYTES MODERATE
[2024-02-16 16:46] LABS: ANION GAP 5 (5-15); CALCIUM 8.3 mg/dL (8.4-11.0); CARBON DIOXIDE 28 mmol/L (23-29); CHLORIDE 103 mmol/L (98-107); CREATININE 2.63 mg/dL (0.55-1.30); GLUCOSE 83 mg/dL (74-106); POTASSIUM 4.2 mmol/L (3.5-5.1); SODIUM SERUM 136 mmol/L (136-145); UREA NITROGEN, BLOOD 53 mg/dL (8-21)
[2024-02-16 18:58] LABS: BILIRUBIN,URINE NEGATIVE (NEGATIVE); BLOOD, URINE NEGATIVE (NEGATIVE); CLARITY/URINE CLEAR (CLEAR); COLOR,URINE YELLOW (YELLOW); GLUCOSE,URINE NEGATIVE (NEGATIVE); KETONES,URINE NEGATIVE (NEGATIVE); LEUKOCYTE ESTERASE ,URINE TRACE (NEGATIVE); NITRITE, URINE NEGATIVE (NEGATIVE); PROTEIN URINE NEGATIVE (NEGATIVE); UROBILINOGEN,URINE 0.2 (0.2-1.0)
[2024-02-16] MEDS ORDERED: cefTRIAXone 1 GM IVPB PREMIX 50 ML IV SCH (19:15)
[2024-02-16] MEDS ORDERED: cefTRIAXone 1 GM VIAL ONE (19:47)
[2024-02-16 20:06] LABS: BACTERIA,URINE RARE /HPF (None Seen); RBC,URINE 0-3 /HPF (0-3); WBC,URINE 0-3 /HPF (0-3)
[2024-02-16] MEDS: NACL 0.9% 1,000 ML IV SCH (20:17)
[2024-02-16] MEDS: CEFTRIAXONE SOD 1 GM/ D5W 50 ML IV SCH (20:21)
[2024-02-16 21:50] VITALS: BP_SYST 164; PULSE 117; RESP 16; TEMP 97.9; O2SAT 96
[2024-02-17 00:22] VITALS: BP_SYST 150; PULSE 123; RESP 18; TEMP 97.9; O2SAT 95
[2024-02-17] MEDS ORDERED: METOPROLOL SUCCINATE 25 MG TAB.SR.24H (TOPROL XL) PO SCH (03:00)
[2024-02-17] MEDS: METOPROLOL TARTRATE 25 MG TABLET PO ONE (04:23)
[2024-02-17 08:00] VITALS: BP_SYST 116; PULSE 80; RESP 15; TEMP 97.9; O2SAT 98
[2024-02-17 09:30] VITALS: O2SAT 98
[2024-02-17 12:05] VITALS: BP_SYST 121; BP_SYST 122; PULSE 60; PULSE 80; RESP 14; RESP 15; TEMP 97.9; TEMP 98.2; O2SAT 95; O2SAT 97
[2024-02-17 16:28] VITALS: BP_SYST 148; PULSE 97; RESP 16; TEMP 98.2; O2SAT 99
[2024-02-17] MEDS: MAG-AL HYDROX/SIMETH 30 ML UDC PO ONE (18:47)
[2024-02-17 20:00] VITALS: BP_SYST 153; PULSE 116; O2SAT 94
[2024-02-17] MEDS: ONDANSETRON HCL 4 MG/2 ML VIAL IVP PRN (20:49)
[2024-02-17] MEDS: traMADol HCL HCL 50 MG TABLET (ULTRAM) PO SCH (20:49)
[2024-02-17] MEDS: METOPROLOL TARTRATE 25 MG TABLET PO SCH (23:33)
[2024-02-17] MEDS: METOPROLOL TARTRATE 25 MG TABLET ONE (23:38)
[2024-02-18] VITALS (7 sets, daily range): BP systolic 134–172; PULSE 74–120; RESP 17–20; TEMP 97.4–97.7; O2SAT 93–100
[2024-02-18 06:06] LABS: BASOPHILS % (AUTO) 0.5 % (0.0-2.0); EOSINOPHILS # (AUTO) 0.1 K/uL (0.0-0.4); HEMATOCRIT 28.9 % (36-48); HEMOGLOBIN 9.8 g/dL (12.0-16.0); LYMPHOCYTES # (AUTO) 1.1 K/uL (1.0-5.5); LYMPHOCYTES % (AUTO) 13.2 % (20.5-51.5); MEAN CORPUSCULAR HEMOGLOBIN 30 pg (27-31); MEAN CORPUSCULAR HGB CONC 34 % (32-36); MEAN CORPUSCULAR VOLUME 90 fL (79.0-98.0); MONOCYTES # (AUTO) 0.7 K/uL (0.0-1.0); MONOCYTES % (AUTO) 8.8 % (1.7-9.3); NEUTROPHILS # (AUTO) 6.4 K/uL (1.8-7.7); NEUTROPHILS % (AUTO) 76.5 % (40.0-70.0); PLATELET COUNT (AUTO) 176 K/uL (130-430); RED BLOOD CELL COUNT(AUTO) 3.22 MIL/uL (4.2-6.2); RED CELL DISTRIBUTION WIDTH 13.9 % (9.0-15.0); WHITE BLOOD COUNT (AUTO) 8.3 K/uL (4.8-10.8)
[2024-02-18 06:24] LABS: ANION GAP 13 (5-15); CARBON DIOXIDE 23 mmol/L (23-29); CHLORIDE 107 mmol/L (98-107); CREATININE 1.51 mg/dL (0.55-1.30); GLUCOSE 132 mg/dL (74-106); SODIUM SERUM 143 mmol/L (136-145); UREA NITROGEN, BLOOD 29 mg/dL (8-21)
[2024-02-18] MEDS: hydrALAZINE HCL 20 MG/ML VIAL IVP PRN (09:39)
[2024-02-18] MEDS: BISACODYL 5 MG TABLET.DR (DULCOLAX) PO PRN (12:55)
[2024-02-18 19:59] LABS: BASOPHILS % (AUTO) 0.3 % (0.0-2.0); EOSINOPHILS % (AUTO) 0.2 % (0.0-4.0); HEMATOCRIT 27.4 % (36-48); HEMOGLOBIN 9.4 g/dL (12.0-16.0); LYMPHOCYTES # (AUTO) 1.3 K/uL (1.0-5.5); LYMPHOCYTES % (AUTO) 15.4 % (20.5-51.5); MEAN CORPUSCULAR HEMOGLOBIN 32 pg (27-31); MEAN CORPUSCULAR HGB CONC 34 % (32-36); MONOCYTES # (AUTO) 0.9 K/uL (0.0-1.0); MONOCYTES % (AUTO) 9.9 % (1.7-9.3); NEUTROPHILS # (AUTO) 6.4 K/uL (1.8-7.7); NEUTROPHILS % (AUTO) 74.2 % (40.0-70.0); PLATELET COUNT (AUTO) 155 K/uL (130-430); RED BLOOD CELL COUNT(AUTO) 2.99 MIL/uL (4.2-6.2); RED CELL DISTRIBUTION WIDTH 14.5 % (9.0-15.0); WHITE BLOOD COUNT (AUTO) 8.6 K/uL (4.8-10.8)
[2024-02-18 20:01] LABS: MEAN CORPUSCULAR VOLUME 92 fL (79.0-98.0)
[2024-02-19] VITALS (7 sets, daily range): BP systolic 70–162; PULSE 69–88; RESP 15–18; TEMP 97.8–99.7; O2SAT 93–95
[2024-02-19] MEDS: PANTOPRAZOLE SODIUM 40 MG/VIAL (PROTONIX) IVP SCH (11:10)
[2024-02-20] VITALS (7 sets, daily range): BP systolic 137–170; PULSE 48–135; RESP 14–16; TEMP 97.2–97.8; O2SAT 90–94
[2024-02-20] MEDS: SIMETHICONE 40 MG/0.6 ML ML ONE (07:11)
[2024-02-20] MEDS: MIDAZOLAM HCL 5 MG/5 ML VIAL ONE (07:11)
[2024-02-20] MEDS: fentaNYL CITRATE/PF 100 MCG/2 ML AMP ONE (07:11)
[2024-02-20] MEDS: METOPROLOL TARTRATE 25 MG TABLET PO ONE (16:36)
[2024-02-20] MEDS: LOSARTAN POTASSIUM 25 MG TABLET PO SCH (20:42)
[2024-02-21] VITALS: BP_SYST 142; PULSE 118; RESP 16; TEMP 97.2; O2SAT 96
[2024-02-21] MEDS ORDERED: NALOXONE HCL 0.4 MG/ML AMP (NARCAN) IVP PRN (01:00)
[2024-02-21] MEDS: HYDROcodone/ACETAMIN 5-325 MG TAB (NORCO/ VICODIN) PO ONE (01:14)
[2024-02-21 08:52] VITALS: BP_SYST 146; PULSE 65; RESP 18; TEMP 97.2; O2SAT 95
[2024-02-21 09:00] VITALS: O2SAT 95
[2024-02-21 11:14] LABS: ANION GAP 10 (5-15); CALCIUM 8.1 mg/dL (8.4-11.0); CARBON DIOXIDE 23 mmol/L (23-29); CHLORIDE 108 mmol/L (98-107); CREATININE 1.52 mg/dL (0.55-1.30); GLUCOSE 106 mg/dL (74-106); POTASSIUM 3.7 mmol/L (3.5-5.1); SODIUM SERUM 141 mmol/L (136-145); UREA NITROGEN, BLOOD 29 mg/dL (8-21)
[2024-02-21 11:18] LABS: TOTAL IRON BIND. CAPACITY 133 ug/dL (250-450)
[2024-02-21 11:19] VITALS: BP_SYST 156; PULSE 64; RESP 16; TEMP 97.2; O2SAT 93
[2024-02-21 13:07] VITALS: BP_SYST 148; PULSE 66; RESP 16; TEMP 97.2; O2SAT 96
== END 2024-02-21 16:05 | disposition home health service (06) | DRG 640 ==
LOC: SED 13:33 → SMU 19:04 → STU 20:28 → SMU 20:35 → STU 02-17
PROVIDERS: ADMIT Specialist; ATTEND Specialist
PROC: 0DB68ZX Excision of Stomach, Via Natural or Artificial Opening Endoscopic, Diagnostic (ICD-10-PCS; 2024-02-20)
PROC: 0DB58ZX Excision of Esophagus, Via Natural or Artificial Opening Endoscopic, Diagnostic (ICD-10-PCS; principal; 2024-02-20 08:15)
DX: E86.0 Dehydration (principal); N17.0 Acute kidney failure with tubular necrosis; Z68.1 Body mass index [BMI] 19.9 or less, adult; K29.70 Gastritis, unspecified, without bleeding; R62.7 Adult failure to thrive; J44.9 Chronic obstructive pulmonary disease, unspecified; I25.10 Atherosclerotic heart disease of native coronary artery without angina pectoris; E03.9 Hypothyroidism, unspecified; I12.9 Hypertensive chronic kidney disease with stage 1 through stage 4 chronic kidney disease, or unspecified chronic kidney disease; N18.9 Chronic kidney disease, unspecified; Z86.73 Personal history of transient ischemic attack (TIA), and cerebral infarction without residual deficits; Z79.899 Other long term (current) drug therapy; Z88.8 Allergy status to other drugs, medicaments and biological substances
CPT/HCPCS: 36415; 43239; 70450-TC; 70490; 71045; 71250-TC; 80048; 81000; 81001; 81015; 83540; 83550; 83880; 84484; 85007; 85025; 85027; 87040; 87086; 88305; 88312; 88313; 92610-GN; 93005; 96365; 97110-GP; 97116-GP; 97530-GP; 99285; G0378; J0360; J0696; J2250; J2405; J2470; J3010; J7030; J7060; J8597

== ENCOUNTER 2024-02-23 05:22 | Observation (INO) | payer OTHER, MEDICAID ==
[~2024-02-23] VITALS: Ht 167.6 cm; Wt 54.2 kg
[~2024-02-23 05:22] MED LIST changes: -APIX2.5T PO; -PANT40TA45 PO; -PROI40 IVP
[2024-02-23 05:29] VITALS: BP_SYST 169; PULSE 139; RESP 35; TEMP 98; O2SAT 96
[2024-02-23 06:15] LABS: BASOPHILS % (AUTO) 0.5 % (0.0-2.0); EOSINOPHILS # (AUTO) 0.4 K/uL (0.0-0.4); EOSINOPHILS % (AUTO) 4.6 % (0.0-4.0); HEMATOCRIT 29.2 % (36-48); HEMOGLOBIN 9.7 g/dL (12.0-16.0); LYMPHOCYTES # (AUTO) 1.2 K/uL (1.0-5.5); MEAN CORPUSCULAR HEMOGLOBIN 30 pg (27-31); MEAN CORPUSCULAR HGB CONC 33 % (32-36); MEAN CORPUSCULAR VOLUME 90 fL (79.0-98.0); MONOCYTES # (AUTO) 0.7 K/uL (0.0-1.0); MONOCYTES % (AUTO) 8.6 % (1.7-9.3); NEUTROPHILS # (AUTO) 6.2 K/uL (1.8-7.7); NEUTROPHILS % (AUTO) 72.3 % (40.0-70.0); PLATELET COUNT (AUTO) 208 K/uL (130-430); RED BLOOD CELL COUNT(AUTO) 3.26 MIL/uL (4.2-6.2); RED CELL DISTRIBUTION WIDTH 14.5 % (9.0-15.0); WHITE BLOOD COUNT (AUTO) 8.6 K/uL (4.8-10.8)
[2024-02-23 06:30] LABS: ALANINE AMINOTRANSFERASE 34 U/L (12-78); ALBUMIN 2.7 g/dL (3.4-4.8); ANION GAP 11 (5-15); ASPARTATE AMINOTRANSFERASE 34 U/L (10-37); CALCIUM 8.9 mg/dL (8.4-11.0); CARBON DIOXIDE 25 mmol/L (23-29); CHLORIDE 106 mmol/L (98-107); CREATININE 1.22 mg/dL (0.55-1.30); GLUCOSE 114 mg/dL (74-106); POTASSIUM 3.5 mmol/L (3.5-5.1); SODIUM SERUM 142 mmol/L (136-145); TOTAL BILIRUBIN 0.7 mg/dL (0.0-1.0); TOTAL PROTEIN, SERUM 6.8 g/dL (6.4-8.3); UREA NITROGEN, BLOOD 14 mg/dL (8-21)
[2024-02-23 06:32] LABS: BILIRUBIN,DIRECT 0.2 mg/dL (0.0-0.3); PHOSPHORUS 2.3 mg/dL (2.7-4.5)
[2024-02-23] MEDS: NACL 0.9% 1,000 ML IV ONE (06:33)
[2024-02-23] MEDS: NS 500 ML IV ONE (06:34)
[2024-02-23] MEDS: METOPROLOL TARTRATE 5 MG/5 ML VIAL IVP ONE ×2 (06:36→11:38)
[2024-02-23 07:16] LABS: FREE T4 (FREE THYROXINE) 1.3 ng/dl (0.8-1.5); THYROID STIMULATING HORMONE 2.14 uIu/mL (0.36-3.74)
[2024-02-23] MEDS: LABETALOL HCL 20 MG/4 ML CARTRIDGE IVP ONE (07:33)
[2024-02-23 08:17] LABS: BILIRUBIN,URINE NEGATIVE (NEGATIVE); BLOOD, URINE NEGATIVE (NEGATIVE); CLARITY/URINE CLEAR (CLEAR); COLOR,URINE YELLOW (YELLOW); GLUCOSE,URINE NEGATIVE (NEGATIVE); KETONES,URINE NEGATIVE (NEGATIVE); LEUKOCYTE ESTERASE ,URINE NEGATIVE (NEGATIVE); NITRITE, URINE NEGATIVE (NEGATIVE); PH,URINE 5.5 (5.0-8.0); PROTEIN URINE 1+ (NEGATIVE); UROBILINOGEN,URINE 0.2 (0.2-1.0)
[2024-02-23] MEDS ORDERED: METO50TA7 PO (09:17)
[2024-02-23] MEDS: METOPROLOL SUCCINATE 50 MG TAB.SR.24H (TOPROL XL) PO ONE ×2 (10:17→12:56)
[2024-02-23] MEDS: FUROSEMIDE 20 MG/2 ML VIAL IVP ONE (10:23)
[2024-02-23] MEDS ORDERED: traMADol HCL HCL 50 MG TABLET (ULTRAM) PO PRN (10:30)
[2024-02-23] MEDS ORDERED: METOPROLOL TARTRATE 5 MG/5 ML VIAL IVP PRN (12:45)
[2024-02-23] MEDS: ATORVASTATIN 20 MG TABLET PO ONE ×2 (12:56→13:20)
[2024-02-23 13:25] VITALS: BP_SYST 161; PULSE 83; RESP 24; TEMP 98.4; O2SAT 100
[2024-02-23 13:33] VITALS: BP_SYST 161; PULSE 83; RESP 20; TEMP 98.4; O2SAT 100
[2024-02-23 13:45] VITALS: BP_SYST 167; PULSE 70; RESP 20; TEMP 98.2; O2SAT 97
[2024-02-23] MEDS: hydrALAZINE HCL 25 MG TABLET PO SCH (14:46)
[2024-02-23] MEDS: FUROSEMIDE 20 MG/2 ML VIAL IVP SCH (14:47)
[2024-02-23] MEDS: traMADol HCL HCL 50 MG TABLET (ULTRAM) PO PRN (16:41)
[2024-02-23 20:00] VITALS: BP_SYST 146; PULSE 65; RESP 20; TEMP 98.3; O2SAT 98
[2024-02-23] MEDS ORDERED: METOPROLOL SUCCINATE 50 MG TAB.SR.24H (TOPROL XL) PO SCH (21:00)
[2024-02-23] MEDS: PANTOPRAZOLE SODIUM 40 MG TAB PO SCH (21:41)
[2024-02-23] MEDS: MIRTAZAPINE 15 MG TABLET PO SCH (21:42)
[2024-02-23] MEDS: METOPROLOL SUCCINATE 50 MG TAB.SR.24H (TOPROL XL) PO SCH (21:43)
[2024-02-24] VITALS (7 sets, daily range): BP systolic 134–147; PULSE 60–121; RESP 16–18; TEMP 97.1–98.1; O2SAT 95–98
[2024-02-24] MEDS: LEVOTHYROXINE SODIUM 0.025 MG TABLET PO SCH (06:05)
[2024-02-24] MEDS ORDERED: METOPROLOL SUCCINATE 50 MG TAB.SR.24H (TOPROL XL) PO SCH ×2 (09:00)
[2024-02-24] MEDS: CITALOPRAM HYDROBROMIDE 20 MG TABLET PO SCH (10:32)
[2024-02-24] MEDS: SPIRONOLACTONE 25 MG TABLET (ALDACTONE) PO SCH (10:32)
[2024-02-24] MEDS: ATORVASTATIN 20 MG TABLET PO SCH (10:33)
[2024-02-24] MEDS: FUROSEMIDE 20 MG TABLET PO SCH (20:07)
[2024-02-24] MEDS: METOPROLOL TARTRATE 50 MG TABLET PO SCH (20:08)
[2024-02-25 00:02] VITALS: BP_SYST 137; PULSE 63; RESP 18; TEMP 97.8; O2SAT 95
[2024-02-25 08:00] VITALS: BP_SYST 149; PULSE 57; RESP 28; TEMP 97.5; O2SAT 98
[2024-02-25] MEDS ORDERED: FURO-150 PO (08:56)
[2024-02-25 12:24] VITALS: BP_SYST 141; PULSE 57; RESP 28; TEMP 97.5; O2SAT 98
[2024-02-25 15:52] LABS: BASOPHILS % (AUTO) 0.6 % (0.0-2.0); EOSINOPHILS # (AUTO) 0.4 K/uL (0.0-0.4); EOSINOPHILS % (AUTO) 6.1 % (0.0-4.0); HEMATOCRIT 29.2 % (36-48); LYMPHOCYTES # (AUTO) 1.7 K/uL (1.0-5.5); LYMPHOCYTES % (AUTO) 25.3 % (20.5-51.5); MEAN CORPUSCULAR HEMOGLOBIN 31 pg (27-31); MEAN CORPUSCULAR HGB CONC 34 % (32-36); MEAN CORPUSCULAR VOLUME 91 fL (79.0-98.0); MONOCYTES # (AUTO) 0.8 K/uL (0.0-1.0); MONOCYTES % (AUTO) 11.3 % (1.7-9.3); NEUTROPHILS # (AUTO) 3.8 K/uL (1.8-7.7); NEUTROPHILS % (AUTO) 56.7 % (40.0-70.0); PLATELET COUNT (AUTO) 217 K/uL (130-430); RED BLOOD CELL COUNT(AUTO) 3.22 MIL/uL (4.2-6.2); RED CELL DISTRIBUTION WIDTH 14.2 % (9.0-15.0); WHITE BLOOD COUNT (AUTO) 6.8 K/uL (4.8-10.8)
[2024-02-25 16:18] LABS: ALANINE AMINOTRANSFERASE 22 U/L (12-78); ALBUMIN 2.4 g/dL (3.4-4.8); ANION GAP 7 (5-15); ASPARTATE AMINOTRANSFERASE 22 U/L (10-37); CALCIUM 8.2 mg/dL (8.4-11.0); CARBON DIOXIDE 28 mmol/L (23-29); CHLORIDE 105 mmol/L (98-107); CREATININE 1.93 mg/dL (0.55-1.30); GLUCOSE 92 mg/dL (74-106); PHOSPHORUS 3.5 mg/dL (2.7-4.5); SODIUM SERUM 140 mmol/L (136-145); TOTAL BILIRUBIN 0.6 mg/dL (0.0-1.0); TOTAL PROTEIN, SERUM 6.6 g/dL (6.4-8.3); UREA NITROGEN, BLOOD 19 mg/dL (8-21)
[2024-02-25 16:35] VITALS: BP_SYST 147; PULSE 52; RESP 20; TEMP 97.4; O2SAT 100
[2024-02-25 16:47] VITALS: BP_SYST 151; PULSE 47; RESP 21; TEMP 98; O2SAT 100
[2024-02-25 17:41] VITALS: BP_SYST 147; PULSE 52; RESP 20; TEMP 98.4; O2SAT 100
== END 2024-02-25 18:05 | disposition hospice, home (50) ==
LOC: SED 05:22 → STU 09:24
PROVIDERS: ADMIT Specialist; ATTEND Specialist
DX: I13.0 Hypertensive heart and chronic kidney disease with heart failure and stage 1 through stage 4 chronic kidney disease, or unspecified chronic kidney disease (principal); I50.9 Heart failure, unspecified; N18.9 Chronic kidney disease, unspecified; N17.9 Acute kidney failure, unspecified; I16.0 Hypertensive urgency; I48.91 Unspecified atrial fibrillation; E03.9 Hypothyroidism, unspecified; E78.5 Hyperlipidemia, unspecified; E87.70 Fluid overload, unspecified; M81.0 Age-related osteoporosis without current pathological fracture; F03.90 Unspecified dementia, unspecified severity, without behavioral disturbance, psychotic disturbance, mood disturbance, and anxiety; I25.10 Atherosclerotic heart disease of native coronary artery without angina pectoris; J44.9 Chronic obstructive pulmonary disease, unspecified; Z86.73 Personal history of transient ischemic attack (TIA), and cerebral infarction without residual deficits; Z79.899 Other long term (current) drug therapy
CPT/HCPCS: 96361; 96374; 96375; 96376 ×2; 80076; 80048; 81001; 83880 ×2; 84439; 83735 ×2; 84100 ×2; 84443; 85025 ×2; 87081; 87040; 84484; 36415 ×2; 93005; 71045; 99291; 83605; 81003; 80053; G0378 ×3; J1940; J3490